=== PATIENT | female | born 1980 | race Two or more races ===

== ENCOUNTER 2022-11-09 10:22 | Outpatient (REF) | payer MEDICAID, SELFPAY ==
--- NOTE | ~2022-11-09 | MM_ITS ---
EXAMINATION: MM DIAGNOSTIC DIGITAL WITH TOMOSYNTHESIS, BILATERAL US BREAST, TARGETED, RIGHT CLINICAL INFORMATION: Right breast lump 3 o'clock position. The lifetime risk of breast cancer based on the Tyrer-Cuzick Model is 17%. COMPARISON: Mammography: None. TECHNIQUE: Digital breast tomosynthesis is performed in both the craniocaudal and mediolateral oblique views along with computer-aided detection (CAD). Synthesized 2D images are generated from the tomosynthesis. Targeted right breast ultrasound. FINDINGS: The breasts are heterogeneously dense, which may obscure small masses (ACR BI-RADS breast composition Category c). MAMMOGRAM: LEFT BREAST: The left breast appears unremarkable without abnormal dominant mass or suspicious grouping of microcalcifications. RIGHT BREAST: Views of the right breast demonstrate in the central aspect of the right breast a circumscribed lobular density approximately 3 cm from the nipple measuring approximately 1.0 x 0.8 cm in size. Spot compression views appear to efface the central density with the appearance of possible superimposition of fibroglandular tissue, however, faint, hazy density is not excluded. No abnormality is identified in the region of palpable lump. ULTRASOUND: Ultrasound of the right breast in region of palpable abnormality approximately 4 o'clock position did not demonstrate any abnormal cystic or solid mass. No region of abnormal distal sound shadowing was identified. Scanning the central aspect of the right breast did not demonstrate any abnormal cystic or solid mass. No region of abnormal distal sound shadowing is seen. At the 8 o'clock position there is noted to be an incidental 2 mm simple cyst. Results are discussed with the patient at time of visit. MM/MM tomosynthesis diagnostic BI IMPRESSION: No mammographic or ultrasound abnormality is identified in the region of palpable abnormality. The questioned central density 3 cm from the nipple is not definitely identified on ultrasound and six-month follow-up right breast mammogram is suggested for follow-up. ASSESSMENT: BI-RADS 3: Probably Benign RECOMMENDATION: Diagnostic mammography in 6 months. This patient's information was entered into a reminder system with a target due date for their next mammogram.
== END 2022-11-09 10:23 | disposition home or self-care (01) ==
LOC: HO.MAMMO 10:22
PROVIDERS: PCP Student in an Organized Health Care Education/Training Program; Visit Provider Advanced Practice Midwife
DX: N63.41 Unspecified lump in right breast, subareolar (principal)
CPT/HCPCS: 76642; 77062; 77066

== ENCOUNTER 2023-05-29 14:36 | Outpatient (REF) | payer MEDICAID, SELFPAY ==
--- NOTE | ~2023-05-29 | MM_ITS ---
EXAMINATION: MM DIAGNOSTIC DIGITAL BREAST TOMOSYNTHESIS, RIGHT US BREAST LIMITED, RIGHT MAMMOGRAPHY: CLINICAL INFORMATION: Follow-up focal asymmetry central right breast approximately 11:30 o'clock location previously not seen on ultrasound. COMPARISON: Mammography: 11/09/2022. Ultrasound 11/09/2022. TECHNIQUE: Digital right breast tomosynthesis is performed in both the craniocaudal and mediolateral oblique views along with computer-aided detection (CAD). Synthesized 2D images are generated from the tomosynthesis. In addition, a full-field right mediolateral view was performed. FINDINGS: There are scattered areas of fibroglandular density (ACR BI-RADS breast composition Category b). There is a lobular focal asymmetry at the 11:30 o'clock location central right breast approximately 3.5 cm from the nipple, similar to the prior exam without definite change. There is otherwise no suspicious mass, suspicious grouped calcifications, or area of architectural distortion. Results are provided to the patient at time of visit by the technologist. ULTRASOUND: CLINICAL INFORMATION: Evaluate focal asymmetry central right breast approximately 11:30 o'clock location. Second Look ultrasound. COMPARISON: 11/09/2022 TECHNIQUE: Targeted sonographic evaluation was performed using a high frequency linear transducer. Attention was given to the 11-12 o'clock axis right breast. Selected archived documentation. FINDINGS: RIGHT BREAST: In the 11:00 axis approximately 2 cm from the nipple, there is a 2.9 x 0.4 x 0.7 cm lobular hypoechoic mass with good through transmission, no internal blood flow, and not definitively a cyst. This is most likely a fibroadenoma or variant. It is probably benign. Recommend six-month interval targeted right breast ultrasound as well as right mammography in 6 months when the patient is due for bilateral screening. MM/MM tomosynthesis diagnostic RT IMPRESSION: There are no findings suspicious for malignancy in the right breast. Probably benign fibroadenoma or variant in the 11:00 axis of the right breast measuring up to 9 mm. Recommend six-month interval follow-up mammography and targeted sonography to ensure stability. OVERALL ASSESSMENT: Mammography: BI-RADS 3 - Probably benign finding(s) - 6 month follow-up suggested Ultrasound: BI-RADS 3 - Probably benign finding(s) - 6 month follow-up suggested RECOMMENDATION: 6 Month F/U This patient's information was entered into a reminder system with a target due date for their next mammogram.
== END 2023-05-29 14:37 | disposition home or self-care (01) ==
LOC: HO.MAMMO 14:36
PROVIDERS: PCP Student in an Organized Health Care Education/Training Program; Visit Provider Student in an Organized Health Care Education/Training Program
DX: R92.2 Inconclusive mammogram (principal)
CPT/HCPCS: 76642; 77061; 77065

== ENCOUNTER → 2023-05-29 15:00 | Outpatient (BNV) | payer MEDICAID, SELFPAY | PROVIDERS: PCP Student in an Organized Health Care Education/Training Program; Visit Provider Radiology Diagnostic Radiology | DX: D24.1 Benign neoplasm of right breast (principal) | CPT/HCPCS: 76642; 77061; 77065 ==

== ENCOUNTER 2023-11-29 10:41 | Outpatient (REF) | payer MEDICAID, SELFPAY ==
--- NOTE | ~2023-11-29 | MM_ITS ---
EXAMINATION: MM DIAGNOSTIC DIGITAL BREAST TOMOSYNTHESIS, BILATERAL US BREAST LIMITED, RIGHT MAMMOGRAPHY: CLINICAL INFORMATION: Six-month follow-up diagnostic right breast mammogram for central retroareolar lobular focal asymmetry, which does not definitively persist on spot compression views previously. Questionable correlation on ultrasound, however likely not wine sales representative of same entity due to depth. Patient also due for bilateral screening today. Breast cancer in mother at age 40's. COMPARISON: Mammography: 05/29/2023, 11/09/2022 (baseline). TECHNIQUE: Digital breast tomosynthesis is performed in both the craniocaudal and mediolateral oblique views along with computer-aided detection (CAD). Synthesized 2D images are generated from the tomosynthesis. A second left MLO was also submitted. This was followed by targeted right breast ultrasound. FINDINGS: The breasts are heterogeneously dense, which may obscure small masses (ACR BI-RADS breast composition Category c). In the central right breast, the retroareolar lobular focal asymmetry is again noted, however does not persist on prior spot compression views, and no correlate on ultrasound was definitively seen previously. We will attempt to image this region on ultrasound today. It appears less conspicuous on mammography. In the upper outer aspect of the right breast, there is an focal asymmetry/possible mass at the 11:00 axis, approximately 7 cm from the nipple, better seen on the CC projection and not as well seen on the MLO projection. This will be evaluated with ultrasound. Otherwise, no additional abnormal masses, developing regions of architectural distortion, additional asymmetries, or suspicious calcifications are present in either breast. The left breast heterogeneously dense parenchymal pattern is stable from prior exams without change. No skin or axillary abnormalities are present. ULTRASOUND: CLINICAL INFORMATION: As above. Evaluate for correlate central right breast, and 6 month follow-up finding at 11:00 axis, 2 cm from the nipple right breast. Also, evaluate focal asymmetry upper outer quadrant right breast. COMPARISON: 05/29/2023, 11/09/2022 right breast ultrasounds. TECHNIQUE: Targeted sonographic evaluation was performed using a high frequency linear transducer. Attention was given to the above regions. Selected archived documentation. FINDINGS: RIGHT BREAST: -Both myself and the solutions architect scanned. There is heterogeneously dense fibrocystic parenchyma. -There is no ultrasound correlate to the central focal asymmetry in the retroareolar region right breast. This is likely a benign tissue island and is stable from the prior exams. -The previously questioned fibroadenoma/mass at 11:00, 2 cm from the nipple, is again seen today sonographically, however appears to represent a benign fat lobule as opposed to an actual mass. Both myself and the technologist scanned, and I believe the finding to represent a normal fat lobule. No definite mass at 11:00, 2 cm from the nipple. -In the upper outer quadrant of the right breast, 11:00 axis, 7 cm from the nipple, there is an irregular hypoechoic mass with lobulated irregular margins, surrounding hyperechoic fat, no posterior features, no internal color Doppler blood flow, however mild peripheral increased color Doppler flow was noted. This mass is indeterminant and measures 7 x 5 x 5 mm. Ultrasound-guided biopsy is recommended. MM/MM tomosynthesis diagnostic BI IMPRESSION: -Indeterminant mass measuring 7 x 5 x 5 mm upper outer quadrant right breast 11:00 axis, 7 cm from the nipple, for which ultrasound-guided biopsy is recommended. This correlates with the focal asymmetry seen on mammography. Findings and recommendations were communicated to the patient via an summer camp counselor. -No definite persistent ultrasonographic mass 11:00 right breast, 2 cm from the nipple. The previous finding appears to represent a benign fat lobule. No further follow-up of this finding recommended. -No definite correlative abnormality in the central right breast retroareolar region on ultrasound, similar to previous, and less conspicuous on mammography. This is likely a benign island of dense tissue. No further follow-up recommended. OVERALL ASSESSMENT: Mammography: BI-RADS 4 - Suspicious finding Ultrasound: BI-RADS 4 - Suspicious finding RECOMMENDATION: Biopsy recommended
== END 2023-11-29 10:42 | disposition home or self-care (01) ==
LOC: HO.MAMMO 10:41
PROVIDERS: PCP Student in an Organized Health Care Education/Training Program; Visit Provider Student in an Organized Health Care Education/Training Program
DX: R92.2 Inconclusive mammogram (principal)
CPT/HCPCS: 76642; 77062; 77066

== ENCOUNTER → 2023-11-29 11:00 | Outpatient (BNV) | payer MEDICAID, SELFPAY | PROVIDERS: PCP Student in an Organized Health Care Education/Training Program; Visit Provider Radiology Diagnostic Radiology | DX: R92.8 Other abnormal and inconclusive findings on diagnostic imaging of breast (principal) | CPT/HCPCS: 76642; 77062; 77066 ==

== ENCOUNTER 2023-12-05 07:48 | Outpatient (AMB) | payer MEDICAID, SELFPAY ==
--- NOTE | 2023-12-05 08:02 | MHC.OFFVIS ---
Vital Signs 12/05/23 08:06 Height 5 ft 2 in Weight 137 lb BMI 25.1 Intake Visit Reasons: Rt breast us bx Intake Note: This patient presents for an assessment for right breast ultrasound guided biopsy for nodule. Pt c/o; reports no breast pain or tenderness, reports no change in size or shape, reports no discharge from nipple. Physician Relations Manager Required: No Accompanied by: Self / Same As Patient Allergies No Known Allergies Allergy (Unverified 12/05/23 08:11) Medication List - Last Reconciled 12/05/23 by Butch Cook MD sertraline 25 mg PO QAM HPI HPI Rt breast us bx: Details: [age] year-old female referred for a right breast mass. She had a diagnostic mammogram last 11/29/2023 for history of a right breast focal asymmetry on a previous mammogram. This follow-up mammogram showed a lobular focal asymmetry on the Stephen areolar aspect of the right breast in the upper outer quadrant at the 11 o'clock position measuring about 7 x 5 x 5 mm. An ultrasound-guided biopsy was recommended She denies any palpable breast masses. Her menarche was at age of 13. Her 1st was at age of 23. She had pregnancies. She says that her mother was diagnosed to have breast cancer in her 50s. [facility] Medical History (Updated 12/05/23 @ 08:45 by Butch Cook MD) Hypertension Breast mass, right Surgical History History of tubal ligation Family History Mother Breast cancer Social History Alcohol intake: current Alcohol intake frequency: holidays/special occasions only Patient Tobacco Use Status: Never used Tobacco Female Reproductive History Menstrual Age of Menarche: 13 Date of last menstrual period: 11/09/23 Total pregnancies: 3 Full term: 2 Number of Living Children: 2 Review of Systems Const Denies chills and Denies fever(s) Card Denies chest pain, Denies dyspnea and Denies dyspnea on exertion Resp Denies cough, Denies dyspnea and Denies dyspnea on exertion GI Denies hematochezia and Denies change in bowel habits Denies hematuria Musc Denies back pain and Denies limited range of motion Neuro Denies focal weakness and Denies convulsions Psych Denies depression and Denies mood swings Physical Exam Vital Signs: BMI result Body Mass Index 25.1 Const General: comfortable and no acute distress Orientation/consciousness: patient oriented x3 Neck Neck: Yes no lymphadenopathy Chest Other: No palpable breast masses, no nipple or skin changes, palpable mobile lymph node about 1 cm in the right axilla, well-defined Resp Auscultation: clear to auscultation bilaterally Cardio Rhythm: regular rhythm GI Palpation (GI): Soft to palpation, nontender and no guarding Neuro General: patient oriented x3 Assessment & Plan Assessment & Plan (1) Breast mass, right: Code(s): N63.10 - Unspecified lump in the right breast, unspecified quadrant Category: Medical Plan: She has a right breast mass seen on imaging studies as described above. An ultrasound-guided biopsy had been recommended therefore I explained to her the technique of this procedure. I will see her next week after her biopsy to discuss the path report. I also feel a lymph node in the right axilla which is very mobile. I have asked the radiologist to see if this can be biopsied as well in the same setting. Orders: Orders US breast ndl core biopsy RT 12/04/23 N63.10 - Unspecified lump in the right breast, unspecified quadrant Coding Level of Care Code New Pt Level 3 (32389) Diagnoses Breast mass, right N63.10
[2023-12-05 08:06] VITALS: BMI 25.1
== END 2023-12-05 08:46 | disposition home or self-care (01) ==
PROVIDERS: PCP Student in an Organized Health Care Education/Training Program; Referring Provider Student in an Organized Health Care Education/Training Program; Visit Provider Surgery
DX: N63.10 Unspecified lump in the right breast, unspecified quadrant (principal)
CPT/HCPCS: 99203

== ENCOUNTER → 2023-12-05 07:48 | Outpatient (BNVA) | payer MEDICAID, SELFPAY | PROVIDERS: PCP Student in an Organized Health Care Education/Training Program; Visit Provider Surgery | DX: N63.11 Unspecified lump in the right breast, upper outer quadrant (principal) | CPT/HCPCS: 99202 ==

== ENCOUNTER 2023-12-10 07:42 | Outpatient (REF) | payer MEDICAID, SELFPAY ==
--- NOTE | ~2023-12-10 | MM_ITS ---
PROCEDURE: US GUIDED BREAST BIOPSY, RIGHT CLINICAL INFORMATION: Right breast 11:00 axis, 7 cm from the nipple, irregular hypoechoic mass measuring approximately 7 x 5 x 5 mm with lobulated margins, slightly increased in conspicuity and size from prior and biopsy was recommended. COMPARISON: Ultrasound right breast 11/29/2023 with mammography. Ultrasound right breast 05/29/2023 with mammography. PROCEDURAL DETAILS: The details of the procedure, as well as the risks, benefits, and alternatives to the procedure were explained to the patient in detail and all of her questions were answered, after which written informed consent was obtained. Site and side were confirmed. Prior to the procedure, sonography revealed a hypoechoic vascular mass at the 11:00 axis, 7 cm from the nipple, measuring 7 x 5 x 5 mm with lobulated margins.. A time-out was performed, the lesion intended for biopsy was targeted, and the skin of the right breast was then marked, prepped and draped in the usual sterile fashion. Using sonographic guidance, sterile technique, and 1% lidocaine without epinephrine for local anesthesia, multiple core biopsies were obtained through the targeted area with a 14G spring loaded [employer] core biopsy device. There was real-time confirmation of appropriate needle passage. Sampling was documented. At the completion of tissue sampling, a single ribbon-shaped metallic clip was deposited at the biopsy site. There was no evidence of immediate complication. SPECIMEN: 3 well formed core samples were obtained DIGITAL POST-PROCEDURE MAMMOGRAPHY: Breast density: The tissue is heterogeneously dense which may obscure small masses. BI-RADS version 5, category C. There are no new mammographic findings demonstrated. The postprocedure 2-view direct digital mammogram reveals satisfactory and accurate positioning of the biopsy clip. No hematoma present. The patient tolerated the procedure well and, after assuring adequate hemostasis, was discharged in good condition after reviewing postbiopsy breast care instructions. Final pathology results are pending. OTHER ULTRASONOGRAPHIC FINDINGS: Ultrasound scanning of the right axilla was also performed at the same time per the request of Dr. Cook, who palpated a mass or lymph node in the low right axilla. Normal-appearing lymph nodes with borderline thick cortex at 3.5 mm seen, normal fatty lashae, and no significant alteration of patrica architecture. Normal vascular lashae. There was a sebaceous cyst present in the low right axilla, likely accounting for the palpable finding. MM/MM tomosynthesis diagnostic RT IMPRESSION: 1. No immediate complication from ultrasound-guided percutaneous biopsy right breast mass at 11:00. 2. Ultrasound was used to localize and guide marker clip placement. 3. The 2-view direct digital postprocedure mammogram reveals satisfactory positioning of the biopsy clip. 4. Final pathology results are pending. A separate report with final recommendations will be issued once these results are made available. 5. Palpable abnormality in the right axilla represents a sebaceous cyst. No definite abnormal or suspicious right axillary nodes are identified.
[2023-12-10] MEDS: Sodium Bicarbonate 8.4% 50 MEQ/50 ML VIAL SUBCUT (09:23)
[2023-12-10] MEDS: Lidocaine HCl 1 % 20 ML VIAL SUBCUT (09:25)
== END 2023-12-10 07:43 | disposition home or self-care (01) ==
LOC: HO.MAMMO 07:42
PROVIDERS: PCP Student in an Organized Health Care Education/Training Program; Visit Provider Surgery
DX: N63.11 Unspecified lump in the right breast, upper outer quadrant (principal)
CPT/HCPCS: 19083; 77061; 77065; 88305; A4648; C1894

== ENCOUNTER → 2023-12-10 08:00 | Outpatient (BNV) | payer MEDICAID, SELFPAY | PROVIDERS: PCP Student in an Organized Health Care Education/Training Program; Visit Provider Radiology Diagnostic Radiology | DX: N63.10 Unspecified lump in the right breast, unspecified quadrant (principal) | CPT/HCPCS: 19083; 77065 ==

== ENCOUNTER 2023-12-16 08:49 | Outpatient (AMB) | payer MEDICAID, SELFPAY ==
--- NOTE | 2023-12-16 08:52 | A.OFFVIS_ITS ---
Intake Visit Reasons: follow up Rt breast us bx Intake Note: This patient presents for a follow up for right breast biopsy results. Patient c/o; reports no complaints. Mercury Washer Required: No Accompanied by: Self / Same As Patient Allergies No Known Allergies Allergy (Unverified 12/16/23 08:55) Medication List - Last Reconciled 12/16/23 by Butch Cook MD sertraline 25 mg PO QAM HPI HPI follow up Rt breast us bx: Details: She had undergone ultrasound-guided right breast biopsy right breast mass last 12/13/2023. She tolerated procedure well. She denies any post procedure complaints. She is here to discuss the path report. [facility] Medical History Hypertension Breast mass, right Surgical History History of tubal ligation Family History Mother Breast cancer Social History Alcohol intake: current Alcohol intake frequency: holidays/special occasions only Patient Tobacco Use Status: Never used Tobacco Female Reproductive History Menstrual Age of Menarche: 13 Review of Systems Const Denies chills and Denies fever(s) Card Denies chest pain, Denies dyspnea and Denies dyspnea on exertion Resp Denies cough, Denies dyspnea and Denies dyspnea on exertion GI Denies hematochezia and Denies change in bowel habits Denies hematuria Musc Denies back pain and Denies limited range of motion Neuro Denies focal weakness and Denies convulsions Psych Denies depression and Denies mood swings Physical Exam Const General: comfortable and no acute distress Chest Other: No hematoma on biopsy site Resp Effort & Inspection: normal respiratory effort Cardio Rate: regular rate Assessment & Plan Assessment & Plan (1) Breast mass, right: Code(s): N63.10 - Unspecified lump in the right breast, unspecified quadrant Category: Medical Plan: Status post ultrasound biopsy of a right breast mass. She is doing well. Her path report shows benign findings with fibroadenomatous changes. The previous lump on the right axilla was deemed to be a cyst on ultrasound and this is no longer palpable. I explained to her the benign nature of the pathology. She is to continue with regular screening mammograms. She can follow up on a p.r.n. basis. Coding Level of Care Code Est Pt Level 2 (77604) Diagnoses Breast mass, right N63.10
== END 2023-12-16 08:58 | disposition home or self-care (01) ==
PROVIDERS: PCP Student in an Organized Health Care Education/Training Program; Referring Provider Student in an Organized Health Care Education/Training Program; Visit Provider Surgery
DX: N63.10 Unspecified lump in the right breast, unspecified quadrant (principal)
CPT/HCPCS: 99212

== ENCOUNTER → 2023-12-16 08:49 | Outpatient (BNVA) | payer MEDICAID, SELFPAY | PROVIDERS: PCP Student in an Organized Health Care Education/Training Program; Visit Provider Surgery | DX: N63.10 Unspecified lump in the right breast, unspecified quadrant (principal) | CPT/HCPCS: 99212 ==

== ENCOUNTER 2024-04-08 09:32 | Outpatient (REF) | payer MEDICAID, SELFPAY ==
[2024-04-09 08:41] LABS: HIV AB/AG Nonreactive (Nonreactive); HIV Num 1 0.04 S/CO (0.00-0.99); ~HepC Num1 0.14 S/CO (0.00-0.79); ~Hepatitis C Antibody Nonreactive (Nonreactive)
== END 2024-04-08 09:33 | disposition home or self-care (01) ==
LOC: HO.CHCLDS 09:32
PROVIDERS: Visit Provider Student in an Organized Health Care Education/Training Program
DX: Z00.00 Encounter for general adult medical examination without abnormal findings (principal); Z11.4 Encounter for screening for human immunodeficiency virus [HIV]
CPT/HCPCS: 36415; 86803; 87389

== ENCOUNTER 2024-04-14 | Outpatient (REF) | payer MEDICAID, SELFPAY | END 2024-04-14 00:01 | disposition home or self-care (01) | LOC: HO.HHCLNP | PROVIDERS: Visit Provider Family Medicine | DX: Z00.00 Encounter for general adult medical examination without abnormal findings (principal); L02.412 Cutaneous abscess of left axilla | CPT/HCPCS: 87070; 87077; 87186; 87205 ==

== ENCOUNTER 2024-07-13 07:43 | Outpatient (REF) | payer MEDICAID, SELFPAY ==
--- NOTE | ~2024-07-13 | MM_ITS ---
EXAMINATION: MM DIAGNOSTIC DIGITAL BREAST TOMOSYNTHESIS, RIGHT Limited right breast ultrasound. CLINICAL INFORMATION: History of benign right needle core biopsy December 2023 with follow-up recommended. History of right breast focal asymmetry without sonographic correlate followed on mammogram. COMPARISON: Mammography: Comparison is made with available prior examinations dating back to May 2023. TECHNIQUE: Digital breast tomosynthesis is performed in both the craniocaudal and mediolateral oblique views along with computer-aided detection (CAD). Synthesized 2D images are generated from the tomosynthesis. Limited right breast ultrasound. FINDINGS: The breasts are heterogeneously dense, which may obscure small masses (ACR BI-RADS breast composition Category c). Focal asymmetry in the retroareolar region middle to posterior depth persists on additional imaging projections. Marker clip in the upper outer breast from previous benign needle core biopsy. No suspicious calcifications or other abnormal findings. Targeted color Doppler ultrasound scanning in the upper outer quadrant demonstrates normal fibroglandular breast tissue. Again seen is the previously biopsied hypoechoic solid mass with benign pathology at 11:00 7 cm from the nipple measuring 7 x 4 x 6 mm not significantly changed from prior. MM/MM tomosynthesis diagnostic RT IMPRESSION: Right: 1. Previously biopsied benign mass at 11:00. Benign. 2. Focal asymmetry in the retroareolar region middle to posterior depth stable dating back to May 2023. Recommend diagnostic follow up when the patient is due for bilateral mammography in 6 months. ASSESSMENT: BI-RADS BI-RADS 3 - Probably benign finding(s) - 6 month follow-up suggested RECOMMENDATION: 6 Month F/U Results were provided to the patient at time of visit by the technologist. This patient's information was entered into a reminder system with a target due date for their next mammogram. Electronically signed by: Maisha Canales DO 07/13/2024 09:50 AM EST
== END 2024-07-13 07:44 | disposition home or self-care (01) ==
LOC: HO.MAMMO 07:43
PROVIDERS: PCP Student in an Organized Health Care Education/Training Program; Visit Provider Surgery
DX: N63.11 Unspecified lump in the right breast, upper outer quadrant (principal); N64.89 Other specified disorders of breast; R92.331 Mammographic heterogeneous density, right breast; Z86.018 Personal history of other benign neoplasm
CPT/HCPCS: 76642; 77061; 77065

== ENCOUNTER → 2024-07-13 08:45 | Outpatient (BNV) | payer MEDICAID, SELFPAY | PROVIDERS: PCP Student in an Organized Health Care Education/Training Program; Visit Provider Internal Medicine | DX: D24.1 Benign neoplasm of right breast (principal); Z97.8 Presence of other specified devices | CPT/HCPCS: 76642; 77061; 77065 ==

== ENCOUNTER → 2024-12-16 12:30 | Outpatient (BNV) | payer MEDICAID, SELFPAY | PROVIDERS: PCP Student in an Organized Health Care Education/Training Program; Visit Provider Internal Medicine | DX: D24.1 Benign neoplasm of right breast (principal) | CPT/HCPCS: 77062; 77066 ==

== ENCOUNTER 2024-12-16 12:46 | Outpatient (REF) | payer MEDICAID, SELFPAY ==
--- NOTE | ~2024-12-16 | MM_ITS ---
EXAMINATION: MM DIAGNOSTIC DIGITAL BREAST TOMOSYNTHESIS, BILATERAL CLINICAL INFORMATION: Two-year follow-up for focal asymmetry in the retroareolar region of the right breast without prior sonographic correlate. Family history of breast cancer including patient's mother. Benign right breast needle core biopsy upper outer quadrant. COMPARISON: Mammography: Comparison is made with relevant prior exams. TECHNIQUE: Digital breast mammography with tomosynthesis is performed in both the craniocaudal and mediolateral oblique views along with computer-aided detection (CAD). FINDINGS: The breasts are heterogeneously dense, which may obscure small masses (ACR BI-RADS breast composition Category c). Bilateral circumscribed oval masses which wax and consistent with benign fibrocystic changes. Left: There are no significant masses, abnormal calcifications, or other abnormalities. Right: Marker clip in the upper outer breast from previous benign needle core biopsy. Focal asymmetry in the retroareolar region is not significantly changed from prior mammograms dating back for 2 years and therefore benign. No prior sonographic correlate was seen. No suspicious calcifications or other abnormal findings. Results are provided to the patient at time of visit by the technologist. MM/MM tomosynthesis diagnostic BI IMPRESSION: No mammographic evidence of malignancy. ASSESSMENT: BI-RADS BI-RADS 2 - Benign Findings RECOMMENDATION: 1 year F/U This patient's information was entered into a reminder system with a target due date for their next mammogram. Electronically signed by: Maisha Canales DO 12/16/2024 01:16 PM EDT
--- OUTSIDE RECORDS SUMMARY | 2024-12-16 14:13 | XMS_ITS | Encounter Summary ---
Author Organization [employer] Address [address] [place] [address] Care Team Providers Care Stereotype Finisher Name Role Phone Amy Mclain MD Primary Care Provider [phone] Reason for Visit * Reason Onset Date Comments Nurse Triage 02/07/2023 Encounter Details Date Type Department Care Team ([facility] st Contact Info) Description 02/07/2023 Telephone [facility] [address] [place] [address] Amy Mclain MD [address] [place] [address] Nurse Triage Social History Tobacco Use Types Packs/Day Years Used Date Smoking Tobacco: Never Passive Smoke Exposure: Never Smokeless Tobacco: Never Alcohol Use Standard Drinks/Week Comments Never 0 (1 standard drink = 0.6 oz pur e alcohol) Comments No Sex and Gender Information Value Date Recorded Sex Assigned at Female 05/07/2022 10:15 AM EDT Legal Sex Female 10:15 AM EDT Gender Identity Female 06/29/2022 9:20 AM EST Sexual Orientation Straight 05/07/2022 10 :15 AM EDT COVID-19 Exposure Response Date Recorded In the last 10 days, have yo u been in contact with someone who was confirmed or suspected to have Coronavirus/COVID-19? No / Unsure 01/15/2023 9:21 AM EDT documented as of this encounter Miscellaneous Notes * Telephone Encounter - Sade Tay LPN - 02/07/2023 3:10 PM EDT Triage call returned to patient who reports increased episodes of anxiety over the last several weeks. Patient reports no SI/HI concerns but did recently last month feel agitated and felt aggressive towards another. No physical contact and episode passed has shakiness and heart racing and feels an odd sensation in her stomach when this occurs. Has one cup of coffee daily no vitamins and takes an u nknown greens supplement but not daily. Patient develops headaches at times as related to stress.Is not currently seeing therapist and is not on medication at present. Patient is interested in both. Patient with no recent weight loss or gain but sleeps poorly and at times overeats. Clinician services explained and patient readily in agreement with them calling her tomorrow. PCP ASK appt provided for 02/14/23 to accommodate patient work schedule. messaged after call and provided patient information to follow with patient tomorrow. Patient available 12 noon to about 1:30pm.Reviewed withpatient home care recommendations and reasons to call back. Pt verbalized understanding and agrees. Protocol Used: Anxiety and Panic Attack (Adult) Protocol-Based Disposition: See in Office or Video Visit within 3 Days Override (Final) Disposition: Refer to Specialist Override Reason: Can't get off work Override Notes: PCP appt booked as first available to patient Video visit not offered Positive Triage Question: * Symptoms interfere with work or school * All higher-acuity triage questions were negative Care Advice Discussed: * Reassurance and Education - Anxiety * Healthy Living Basics * Avoid Triggers of Anxiety * Avoid Caffeine * Stress Reduction * Reasons To Call Back - Anxiety or panic attacks continue - You feel like harming yourself - You become worse * Reasons To Call Back * Telephone Encounter - Jessie Dalal - 02/07/2023 2:12 PM EDT Symptom: Anxiety or Panic Attack Outcome: Schedule an appointment to be seen within 3 days Reason: Caller denied all higher acuity questions The caller accepted this outcome documented in this encounter Plan of Treatment Not on file documented as of this encounter Visit Diagnoses Not on filedocumented in this encounter Care Teams Stereotype Finisher Relationship Specialty Start Date End Date Amy Mclain MD [address] [place] [address] PCP - General Family Medicine 06/20/12 documented as of this encounter
== END 2024-12-16 12:47 | disposition home or self-care (01) ==
LOC: HO.MAMMO 12:46
PROVIDERS: PCP Student in an Organized Health Care Education/Training Program; Visit Provider Student in an Organized Health Care Education/Training Program
DX: N64.89 Other specified disorders of breast (principal)
CPT/HCPCS: 77062; 77066

== ENCOUNTER 2025-04-16 09:02 | Outpatient (REF) | payer MEDICAID, SELFPAY ==
--- OUTSIDE RECORDS SUMMARY | 2025-04-16 09:31 | XMS_ITS | Encounter Summary ---
Author Organization [employer] Address [address] [place] [address] Care Team Providers Care Distillation Operator Name Role Phone Amy Mclain MD Primary Care Provider [phone] Reason for Visit * Reason Onset Date Comments new patient appt 02/19/2025 Encounter Details Date Type Department Care Team ([facility] Contact Info) Description 02/19/2025 Telephone [facility] ADULT DENTAL [address] [place] [address] David Tello, DMD [address] [place] [address] new patient appt Social History Tobacco Use Types Packs/Day Years Used Date Smoking Tobacco: Never Passive Smoke Exposure: Never Smokeless Tobacco: Never Alcohol Use Standard Drinks/Week Comments Never 0 (1 standard drink = 0.6 oz pur e alcohol) Depression Answer Date Recorded Patient Health Questionnaire-9 Score 7 03/19/2024 Patient Health Questionnaire-9 Score 7 03/19/2024 Last PHQ-9: Questionnaire Data Not on file 0 03/19/2024 Housing Stability Answer Date Recorded What is your housing situation today? I have anabela lopez 01/26/[address] you li ve. Do you have problems with any of the following? None of the above 01/26/2025 Food Insecurity Answer Date Recorded Within the past 12 months, y ou worried that your food would run out before you got money to buy more: Never True 01/26/2025 Within the past 12 months,th e food you bought just didn't last and you didn't have enough money to get more: Never True Transportation Answer Date Recorded In the past 12 months, has l ack of transportation kept you from medical appts, meetings, work or from getting things needed for daily living? No 01/26/2025 Utilities Answer Date Recorded In the past 12 months, has t he electric, gas, oil or water company threatened to shut off services in your home? No 01/26/2025 Depression Answer Date Recorded Patient Health Questionnaire-2 Score 4 03/19/2024 Internet Access Answer Date Recorded Internet Access Q1 No 01/26/2025 Internet Access Q2 I do not want or need it 01/06 Comments No Sex and Gender Information Value Date Recorded Sex Assigned at Female 05/07/2022 10:15 AM EDT Legal Sex Female 10:15 AM EDT Gender Identity Female 06/29/2022 9:20 AM EST Sexual Orientation Straight 05/07/2022 10 :15 AM EDT documented as of this encounter Miscellaneous Notes * Telephone Encounter - Maday Humphreys - 02/19/2025 10:48 AM EDT Patient called in checking in on the status of [facility]adia wait list appt. When I checked in the chart there is no appt wait listed as new patient. I asked the patient if she had made the request over the phone or in person. She's stated that she did it in person because she was in an appt and stopped in after and wants to keep her care in the same place. She says she has been waiting since last year. documented in this encounter Plan of Treatment Upcoming Encounters Date Type Department Care Team (Late st Contact Info) Description 05/07/2025 1:30 PM EDT Office Visit [facility] AD[facility] [address] [place] [address] Seferino Junior [address] [place] [address] documented as of this encounter Visit Diagnoses Not on filedocumented in this encounter Additional Health Concerns Assessment Noted Time PHQ-9 Depression Total Score: 7 03/19/20 24 11:31 AM EDT documented as of this encounter Care Teams Distillation Operator Relationship Specialty Start Date End Date Amy Mclain MD [address] [place] [id number] PCP - General Family Medicine 06/20/12 documented as of this encounter
--- OUTSIDE RECORDS SUMMARY | 2025-04-16 09:31 | XMS_ITS | Encounter Summary ---
Author Organization [employer] Address [address] [facility] [address] [place] [address] Care Team Providers Care Veterans Service Officer Name Role Phone Amy Mclain MD Primary Care Provider [phone] Encounter Details Date Type Department Care Team ([facility] st Contact Info) Description 04/13/2025 Telephone [facility] ADULT DENTAL [address] [place] [address] Sandi Seferino [address] [place] [address] Social History Tobacco Use Types Packs/Day Years [...] encounter Miscellaneous Notes * Telephone Encounter - Tatyana Rose - 04/13/2025 11:08 AM EDT Not able to get in touch w/ pt. I tried both the number she has in her chart and the one she has inher hippa. I was trying to see if she would like to move her appt to a sooner date. documented in this encounter Plan of Treatment Upcoming Encounters Date Type Department Care Team (Late st Contact Info) Description 05/07/2025 1:30 PM EDT Office Visit [facility] ADULT DENTAL [address] [place] [address] Seferino Junior [address] [place] [address] documented as of this encounter Visit Diagnoses Not on filedocumented in this encounter Additional Health Concerns Assessment Noted Time PHQ-9 Depression Total Score: 7 03/19/20 24 11:31 AM EDT documented as of this encounter Care Teams Veterans Service Officer Relationship Specialty Start Date End Date Amy Mclain MD [address] [place] [id number] PCP - General Family Medicine 06/20/12 documented as of this encounter
--- OUTSIDE RECORDS SUMMARY | 2025-04-16 09:31 | XMS_ITS | Encounter Summary ---
Author Organization [employer] Address [address] [facility] [address] [place] [address] Care Team Providers Care Equipment Processor Name Role Phone Amy Mclain MD Primary Care Provider [phone] Reason for Visit * Reason Onset Date Comments Nurse Triage 02/07/2023 Encounter Details Date Type Department Care Team ([facility] st Contact Info) Description 02/07/2023 Telephone [facility] [address] [place] [address] Amy Mclain MD [address] [place] [address] Nurse Triage Social History Tobacco Use Types [...] 1:30 PM EDT Office Visit [facility] ADULT DENTAL [address] [place] [phone] Seferino Junior [address] [place] [phone] documented as of this encounter Visit Diagnoses Not on filedocumented in this encounter Care Teams Equipment Processor Relationship Specialty Start Date End Date Amy Mclain MD [address] [place] [id number] PCP - General Family Medicine 06/20/12 documented as of this encounter
--- OUTSIDE RECORDS SUMMARY | 2025-04-16 09:31 | XMS_ITS | Clinical Summary ---
Author Organization [employer] Address [address] [facility] [address] [place] [address] Care Team Providers Care Welt Sewer Name Role Phone Amy Mclain MD Primary Care Provider [phone] Allergies No known active allergies Medications * This document contains information received from the source organization and may not represent a complete record from that organization. Blood Pressure kitIndications:E levated blood pressure reading 1 kit in the morning. 1 kit 2 Active minoxidil (Rogaine) 2 % external solutionIndicati ons:Alopecia areata Apply topically 2 times daily. 60 mL 3 3 Active spironolactone (Aldactone) 100 MG tabletIndication s:Traction alopecia,Acne vulgaris Take 1 tablet (100 mg) by mouth in the morning. 30 tablet 11 3 Active hydrOXYzine HCl (Atarax) 10 MG tabletIndication s:Anxiety Take 2.5 tablets (25 mg) by mouth if needed at bedtime for anxiety. 30 tablet 2 4 Active sertraline (Zoloft) 25 MG tablet Take 1 tablet (25 mg) by mouth Once per day. 30 tablet 11 5 07/30/19 26 Active cloNIDine (Catapres-TTS) 0.1 MG/24HR Place 1 patch on the skin 1 (one) time per week. 4 patch 5 Active pseudoephedrine (Sudafed) 30 MG tablet Take 1 tablet (30 mg) by mouth every 4 (four) hours if needed for congestion for up to 10 days. 30 tablet 5 Active famotidine (Pepcid) 20 MG tabletIndication s:Gastroesophage al reflux disease, unspecified whether esophagitis present Take 1 tablet (20 mg) by mouth if needed in the morning and at bedtime for heartburn for up to 7 days. 14 tablet 5 Active esomeprazole (NexIUM) [address] capsule Take 1 capsule (20 mg) by mouth before breakfast. Do not open capsule. 30 capsule 11 5 01/27/20 26 Active Active Problems Problem Noted Date Diagnosed Date Staphylococcus aureus infection 04/23/2024 Abscess of axilla, left 04/14/2024 Assessment & Plan (04/14/2024 7:51 PM EDT): Visible abscess on exam, showing 3cm by 4cm mobile, firm mass on left axilla. Discussed I&D versus abx treatment prior and surgery referral including risks and benefits of both. Pt opted for I&D in clinic. -I&D performed 04/14/24, see procedure note. -start Doxycycline 100 mg -recommended ibuprofen for pain. -given work note. -scheduled f/u for 04/16/24. Parotiditis 06/29/2022 Assessment & Plan (06/29/2022 10:01 AM EST): Patient with parotiditis in the hospital, will send to ENT. Recommended followup with PCP. Elevated blood pressure reading 06/29/2022 Assessment & Plan (06/29/2022 10:01 AM EST): Elevated BP, recommend monitoring and will followup with PCP Anxiety 06/28/2022 Assessment & Plan (02/08/2023 1:38 PM EDT): Assessment: Patient with anxiety lasting up to 3 days at a time (difficult to control nervousness/worry, racing thoughts,) and panic attacks (shaking, increased heart rate, stomach sensations). Symptoms are in the context of biopsychosocial stressors of relationship difficulties and a history trauma. Patient will benefit from continuing OP therapy with [facility], discussing medication management options with PCP, and exploring coping mechanisms of grounding and guided deep breathing. . At this time Ambar Botello meets criteria for Visit Diagnoses: Problem List Items Addressed This Visit Other Anxiety Patient ready to address current needs Yes Strengths- Ambar is in OP therapy at [facility] and in the action stage of change PLAN: 1. Follow up with [facility]: Recommended for follow-up: As needed 2. Patient goal is to explore coping mechanisms to decrease anxiety symptoms 3. Behavioral Recommendations a. Guided deep breathing b. Guided grounding c. Continue OP therapy Depressive disorder 06/28/2022 GERD (gastroesophageal reflux disease) 2 Encounters Date Type Department Care Team Description 04/13/2025 Telephone [facility] [address] [place] [address] Sand[facility] 04/08/2025 Telephone [facility] [address] [place] [address] Sand[facility] 03/30/2025 8:00 AM EDT Office Visit [facility] [address] [place] [address] Sandi Seferino 03/16/2025 Orders Only [facility] [address] [place] [address] Amy Mclain MD Hypertension, unspecified type (Primary Dx) 03/15/2025 Telephone [facility] [address] [place] [address] Amy Mclain MD Lab Orders 02/22/2025 9:00 AM EDT Office Visit [facility] [address] [place] [phone] Tim Medrano Dental calculus (Primary Dx) 02/19/2025 Telephone [facility] [address] [place] [phone] David Tello, BARRY new patient appt 01/26/2025 8:45 AM EDT Office Visit [facility] [address] [place] [address] Amy Mclain MD Gastroesophageal reflux disease without esophagitis (Primary Dx); Depressive disorder; Lactose intolerance 01/26/2025 Travel 01/25/2025 Telephone [facility] [address] [place] [address] Amy Mclain MD Chart Prep from Last 3 Months Immunizations Immunization Administration Dates Next Due DTP 1981,1981,1981 DTaP 09/05/1985,03/08/1984 Hep B, adult 05/03/1997,08/08/1995,12/06/1994 Influenza injectable quadriv alent preservative free 04/20/2015 Influenza, IIV3, injectable 07/29/2014 Influenza, Split (incl. terrance fied surface antigen) 03/13/2013 MMR 07/08/1994,10/07/1983 OPV, Trivalent 09/05/1985, 4,1981,1980 TD (adult), 2 Lf tetanus tox oid, preservative free, adsorbed 07/08/1995 Tdap 04/08/2024,07/16/2012,09/29/2010 Family History Medical History Relation Name Comments Breast cancer Mother age 52 in 2022 , in remission Relation Name Status Comments Mother Alive Social History Tobacco Use Types Packs/Day Years Used Date Smoking Tobacco: Never Passive Smoke Exposure: Never Smokeless Tobacco: Never Tobacco Cessation:Counseling Given: Not Answered Alcohol Use Standard Drinks/Week Comments Never 0 [...] the past 12 months, has t he [employer], gas, oil or water [employer] threatened to shut off services in your [...] Orientation Straight 05/07/2022 10 :15 AM EDT Last Filed Vital Signs Vital Sign Reading Time Taken Comments Blood Pressure 120/87 03/30/2025 8:14 AM EDT Pulse 65 02/22/2025 9:04 AM EDT Temperature 36.4 C (97.5 F) 01/26/2025 8:57 AM EDT Respiratory Rate 18 01/26/2025 8:57 AM EDT Oxygen Saturation 100% 07/07/2024 10:19 AM EST Inhaled Oxygen Concentration - - Weight 60.8 kg (134 lb) 01/26/2025 8:57 AM EDT Height 157.5 cm (5' 2 ) 01/26/2025 8:57 AM EDT Body Mass Index 24.51 01/26/2025 8:57 AM EDT Plan of Treatment Upcoming Encounters Date Type Department Care Team (Late st Contact Info) Description 05/07/2025 1:30 PM EDT Office Visit [facility] [address] [place] [address] Seferino Junior [address] [place] [address] Health Maintenance Due Date Last Done Comments Alcohol/Substance Use Screening 1993 Family Planning (PISQ) 1996 HPV Vaccines (1 - 3-dose series) 1996 Dental Oral Exam 01/17/2009 07/19/2008 COVID-19 Vaccine ( season) 2025 Influenza Vaccine (#1) 2025 5, 07/29/2014, 03/13/2013 Depression Screening 03/19/2025 03/19/2024, 03/19/20 24 Dental Prophylaxis 08/26/2025 02/22/2025 Mammogram 12/16/2025 12/16/2024, 12/2024, 07/13/2024, Additional history exists Disability Screening 01/26/2026 01/26/2025 SDOH Screening 01/26/2026 01/26/2025 Dental X-Ray: Bitewings 02/23/2026 02/22/2025 Tobacco Screening 03/30/2026 03/30/2025 Lipid Panel 09/27/2027 09/26/2022 Cervical Cancer Screening 10/17/2027 HPV/Cotest 10/17/2027 10/16/2022 Pap Smear 10/17/2027 10/16/2022 Dental X-Ray: Full Mouth 02/24/2028 02/22/2025 Zoster Vaccines (1 of 2) 2031 DTaP/Tdap/Td Vaccines (9 - Td or Tdap) 04/08/2034 04/08/2024, 07/16/2012, 09/29/2010, Additional history exists RSV Patients and Patients Aged 60 years or older (1 - 1-dose 75+ series) 2056 IPV Vaccines Completed 09/05/1985, 07/1983, 1981, Additional history exists Hepatitis B Vaccines Completed 05/03/1997, 08/08/1995, 12/06/1994 HIV Screening Completed 04/08/2024 Hepatitis C Screening Completed 04/08/2024 HIB Vaccines Aged Out No longer eligi ble based on patient's age to complete this topic Hepatitis A Vaccines Aged Out No long er eligible based on patient's age to complete this topic Meningococcal B Vaccine Aged Out No l onger eligible based on patient's age to complete this topic Meningococcal Vaccine Aged Out No everette catrachito eligible based on patient's age to complete this topic Pneumococcal Vaccine: Pediatrics (0 to 5 Years) and At-Risk Patients (6 to 49) Years Aged Out No longer eligible based on patient's age to complete this topic RSV under 20 months Aged Out No longe r eligible based on patient's age to complete this topic Rotavirus Vaccines Aged Out No longer eligible based on patient's age to complete this topic Procedures Procedure Name Priority Date/Time Associated Diagnosis Comments CASE PRESENTATION, DETAILED AND EXTENSIVE TREATMENT PLANNING Routine 03/30/2025 8:00 AM EDT 19 MOD RESIN-BASED COMPOSITE - 3 SURF, POSTERIOR Routine 03/30/2025 8:00 AM EDT CASE PRESENTATION, DETAILED AND EXTENSIVE TREATMENT PLANNING Routine 02/22/2025 9:00 AM EDT ORAL HYGIENE INSTRUCTIONS Routine 02/22/2025 9:00 AM EDT PROPHYLAXIS - ADULT Routine 02/22/2025 9 :00 AM EDT INTRAORAL - COMPLETE SERIES OF RADIOGRAPHIC IMAGES Routine 02/22/2025 9:00 AM EDT COMPREHENSIVE PERIODONTAL EVALUATION - NEW OR ESTABLISHED PATIENT Routine 02/22/2025 9:00 AM EDT 6 DL COMPOSITE FILLING Routine 12:00 AM EDT 21 O AMALGAM FILLING Routine 02/22/2025 12:00 AM EDT 20 DO AMALGAM FILLING Routine 02/22/2025 12:00 AM EDT 14 MOD COMPOSITE FILLING Routine 02/22/2025 12:00 AM EDT 13 MOD AMALGAM FILLING Routine 12:00 AM EDT 12 DO AMALGAM FILLING Routine 02/22/2025 12:00 AM EDT 30 MO AMALGAM FILLING Routine 02/22/2025 12:00 AM EDT BI MAMMOGRAM DIAGNOSTIC TOMOSYNTHESIS BILATERAL Routine 12/16/2024 12:58 PM EDT HEPATITIS C AB W/REFL TO HCV RNA, QN, PCR Routine 04/08/2024 9:34 AM EDT PE (physical exam), annual HIV 1/2 ANTIGEN/ANTIBODY, FOURTH GENERATION W/RFL Routine 04/08/2024 9:34 AM EDT PE (physical exam), annual IMAGE-GUIDED PAP W/AGE BASED SCR PROTOCOLS Routine 10/16/2022 9:29 AM EDT Cervical cancer screening LIPID PANEL, STANDARD Routine 09/26/2022 8:40 AM EDT Alopecia areata COMPREHENSIVE ORAL EVALUATION - NEW OR ESTABLISHED PATIENT Routine 07/19/2008 12:00 AM EST from Last 3 Months or Most Recently Relevant to Health Maintenance Results * BI Mammogram Diagnostic Tomosynthesis Bilateral (12/16/2024 12:58 PM EDT) Anatomical Region Laterality Modality Breast Bilateral Mammography 12/16/2024 12:5 8 PM EDT Narrative 12/16/2024 1:18 PM EDT [facility] [address] [place] [place], [place] [address] Mammography Report Signed Patient: Ambar Botello MR#: [id number] : 1980 Acct:[id number] Age/Sex: 44 / F ADM Date: 12/16/24 Loc: HO.MAMMO Attending Dr: Amy Mclain MD Ordering Physician: Amy Mclain MD Results: 2Benign Findings Date of Service: 12/16/24 Follow Up: 1 Year From [facility] Mammogram Procedure(s): MM tomosynthesis diagnostic BI Accession Number(s): [id number] cc: Amy Mclain MD EXAMINATION: MM DIAGNOSTIC DIGITAL BREAST TOMOSYNTHESIS, BILATERAL CLINICAL INFORMATION: Two-year follow-up for focal asymmetry in the retroareolar region of the right breast without prior sonographic correlate. Family history of breast cancer including patient's mother. Benign right breast needle core biopsy upper outer quadrant. COMPARISON: Mammography: Comparison is made with relevant prior exams. TECHNIQUE: Digital breast mammography with tomosynthesis is performed in both the craniocaudal and mediolateral oblique views along with computer-aided detection (CAD). FINDINGS: The breasts are heterogeneously dense, which may obscure small masses (ACR BI-RADS breast composition Category c). Bilateral circumscribed oval masses which wax and consistent with benign fibrocystic changes. Left: There are no significant masses, abnormal calcifications, or other abnormalities. Right: Marker clip in the upper outer breast from previous benign needle core biopsy. Focal asymmetry in the retroareolar region is not significantly changed from prior mammograms dating back for 2 years and therefore benign. No prior sonographic correlate was seen. No suspicious calcifications or other abnormal findings. Results are provided to the patient at time of visit by the technologist. MM/MM tomosynthesis diagnostic BI IMPRESSION: No mammographic evidence of malignancy. ASSESSMENT: BI-RADS BI-RADS 2 - Benign Findings RECOMMENDATION: 1 year F/U This patient's information was entered into a reminder system with a target due date for their next mammogram. Electronically signed by: Maisha Canales DO 12/16/2024 01:16 PM EDT Dictated By: Maisha Canales DO Signed By: <Electronically signed by Maisha Canales DO in OV> 12/16/24 1316 DD/ 1258 TD/TT: 12/16/24 1313 Seed Collector: Procedure Note Donotuseinterpreter, Image - 12/16/2024 [facility] [address] [place] [address] Mammography Report Signed Patient: Fernando Botello#: [id number] : 1980Acct:[id number] Age/Sex: 44 / FADM Date: 12/16/24 Loc: HO.MAMMO Attending Dr: Amy Mclain MD Ordering Physician: Amy Mclain MDResults: 2Benign Findings Date of Service: 12/16/24Follow Up: 1 Year From Orig ina Mammogram Procedure(s): MM tomosynthesis diagnostic BI Accession Number(s): [id number] cc: Amy Mclain MD EXAMINATION: MM DIAGNOSTIC DIGITAL BREAST TOMOSYNTHESIS, BILATERAL CLINICAL INFORMATION: Two-year follow-up for focal asymmetry in the retroareolar region of the right breast without prior sonographic correlate. Family history of breast cancer including patient's mother. Benign right breast needle core biopsy upper outer quadrant. COMPARISON: Mammography: Comparison is made with relevant prior exams. TECHNIQUE: Digital breast mammography with tomosynthesis is performed in both the craniocaudal and mediolateral oblique views along with computer-aided detection (CAD). FINDINGS: The breasts are heterogeneously dense, which may obscure small masses (ACR BI-RADS breast composition Category c). Bilateral circumscribed oval masses which wax and consistent with benign fibrocystic changes. Left: There are no significant masses, abnormal calcifications, or other abnormalities. Right: Marker clip in the upper outer breast from previous benign needle core biopsy. Focal asymmetry in the retroareolar region is not significantly changed from prior mammograms dating back for 2 years and therefore benign. No prior sonographic correlate was seen. No suspicious calcifications or other abnormal findings. Results are provided to the patient at time of visit by the technologist. MM/MM tomosynthesis diagnostic BI IMPRESSION: No mammographic evidence of malignancy. ASSESSMENT: BI-RADS BI-RADS 2 - Benign Findings RECOMMENDATION: 1 year F/U This patient's information was entered into a reminder system with a target due date for their next mammogram. Electronically signed by: Maisha Canales DO 12/16/2024 01:16 PM EDT RP Workstation: [employer] Dictated By: Maisha Canales DO Signed By: <Electronically signed by Maisha Canales DO in OV> 12/16/24 1316 DD/ 1258 TD/TT: 12/16/24 1313 Seed Collector: Amy Mclain MD IMG BI PROCEDURES Final Result * Hepatitis C Antibody with Reflex to HCV, RNA, Quantitative, Real-Time PCR (04/08/2024 9:34 AM EDT) Hepatitis C Antibody Nonreactive Nonreactive [facility] Comment:Antibodies to HCV no t detected; does not exclude early acuteHCV infection. Blood Venous blood specimen / Unknown 04/08/2024 9:34 AM EDT 04/08/2024 2:37 PM EDT Amy Mclain MD LAB BLOOD ORDERABLES Final Resul t [facility] [address] [place] [address] [phone] * HIV-1/2 Antigen and Antibodies, Fourth Generation, with Reflexes (04/08/2024 9:34 AM EDT) HIV AB/AG Nonreactive Nonreactive [facility] Comment:HIV-1 p24 Ag and/or HIV-1/HIV-2 Ab not detected.A test result that is nonreactive does not exclude thepossibility of exposure to or infection with HIV-1 and/orHIV-2. Nonreactive results in this assay for individualswith prior exposure to HIV-1 and/or HIV-2 may be due toantigen and antibody levels that are below the limit ofdetection of this assay.The [employer] HIV Ag/Ab Combo assay result andsupplemental assay results should be interpreted inconjunction with the patient's clinical presentation,history and other laboratory results. If the results areinconsistent with clinical evidence, additional testing issuggested to confirm the result. Blood Venous blood specimen / Unknown 04/08/2024 9:34 AM EDT 04/08/2024 2:37 PM EDT us Amy Mclain MD LAB BLOOD ORDERABLES Final Resul t [facility] [address] [place] [phone] * Image-Guided Pap with Age-Based Screening Protocols (10/16/2022 9:29 AM EDT) Comment [facility] Comment: This order for age-based cervical cancer and STI screening follows ACOG guidelines(PB 168, 140, LMK018). See individual assays for performing site location. Clinical Information: None given [facility] LMP: NONE GIVEN [facility] Prev. PAP: NONE GIVEN [facility] Prev. BX: NONE GIVEN [facility] SOURCE: None given [facility] Statement Of Adequacy: [facility] Comment: Satisfactory for evaluation. Endocervical/transformation zone component present. Interpretation/ Result: Negative for intraepithelial lesion or malignancy. [facility] COMMENT: This Pap test has been evaluated with computer assisted technology. [facility] [employer] t: [facility] Comment: MPG, CT(ASCP) CT screening location: [address] [address] (Always Message) [facility] Comment: EXPLANATORY NOTE: The Pap is a screening test for cervical cancer. It is not a diagnostic test and is subject to false negative and false positive results. It is most reliable when a satisfactory sample, regularly obtained, is submitted with relevant clinical findings and history, and when the Pap result is evaluated along with historic and current clinical information. HPV nRNA E6/E7 Not Detected Not Detected [facility] Comment: Methodology: Psychologist Military Personnel-Mediated Amplification This assay detects E6/E7 viral messenger RNA (mRNA) from 14 high-risk HPV types (16,18,31,33,35,39,45,51,52,56,58,59,66,68). Cervical sources are required for HPV testing. If a vaginal source from a patient who has had a total hysterectomy with removal of cervix was submitted, please contact the testing laboratory for alternative testing options. For additional information, please refer to http://education.[employer]/faq/PHB411e2 (This link if provided for information/ educational purposes only.) Cytology specimen container (physical object) 10/16/2022 9:29 AM EDT 10/17/2022 12:59 AM EDT us Rayne Berkowitz [facility] BLOOD ORDERABLES Annabella ohara Result [facility] [address], [place] [address] [facility] [address] [place] [address] * Lipid Panel, Standard (09/26/2022 8:40 AM EDT) Cholesterol, Total 174 <200 mg/dL [facility] HDL Cholesterol 60 > OR = 50 mg/dL [facility] Triglycerides 114 <150 mg/dL [facility] LDL Cholesterol 93 mg/dL (calc) [facility] Comment: Reference range: <100 Desirable range <100 mg/dL for primary prevention; <70 mg/dL for patients with CHD or diabetic patients with > or = 2 CHD risk factors. LDL-C is now calculated using the Faheem-Franco calculation, which is a validated novel method providing better accuracy than the Friedewald equation in the estimation of LDL-C. Faheem SS et al. NURY. 2013;310(19): 5645-3883 (http://education.[employer]/faq/KJM989) Chol/HDLC Ratio 2.9 <5.0 (calc) [facility] Non-HDL Cholesterol 114 <130 mg/dL (calc) [facility] Comment: For patients with diabetes plus 1 major ASCVD risk factor, treating to a non-HDL-C goal of <100 mg/dL (LDL-C of <70 mg/dL) is considered a therapeutic option. Blood Venous blood specimen / Unknown 09/26/2022 8:40 AM EDT 09/26/2022 8:41 AM EDT Narrative [facility] - 09/27/2022 1:47 AM EDT FASTING:YES FASTING: YES Amy Mclain MD LAB BLOOD ORDERABLES Final Resul t [facility] [address], [place] [address] [facility] [address] [place] [address] from Last 3 Months or Most Recently Relevant to Health Maintenance Insurance [facility] C[place] AD[place] Care Teams Welt Sewer Relationship Specialty Start Date End Date Amy Mclain MD [address] [place] [phone] PCP - General Family Medicine 06/20/12
[2025-04-16 14:32] LABS: Alanine Aminotransferase 17 U/L (0-31); Albumin Level 4.4 g/dL (3.5-5.0); Alkaline Phosphatase 84 U/L (39-117); Anion Gap 11 (12-20); Aspartate Amino Transferase 24 U/L (5-31); Blood Urea Nitrogen 7 mg/dL (9-16); Calcium 9.0 mg/dL (8.4-10.2); Carbon Dioxide 23 mmol/L (22-29); Chloride 109 mmol/L (96-108); Cholesterol 178 mg/dL (<200); Estimated Glomerular Filt Rate > 60; HDL Cholesterol 52 mg/dL (>40); Potassium 4.1 mmol/L (3.3-5.1); Sodium 139 mmol/L (135-145); Total Protein 7.1 g/dL (6.5-8.0); Triglycerides 92 mg/dL (<150)
== END 2025-04-16 09:03 | disposition home or self-care (01) ==
LOC: HO.CHCLDS 09:02
PROVIDERS: Visit Provider Student in an Organized Health Care Education/Training Program
DX: I10 Essential (primary) hypertension (principal)
CPT/HCPCS: 36415; 80048; 80061; 80076

== ENCOUNTER 2025-05-04 11:39 | Outpatient (REF) | payer MEDICAID, SELFPAY ==
--- OUTSIDE RECORDS SUMMARY | 2025-05-04 10:00 | XMS_ITS | Encounter Summary ---
Author Organization [employer] Address [address] [facility] 7t [place] [address] Care Team Providers Care Soil Technician Name Role Phone Amy Mclain MD Primary Care Provider [phone] Encounter Details Date Type Department Care Team ([facility] Contact Info) Description 05/04/2025 10:00 AM EDT Office Visit [facility] MED & PEDS [address] [place], [place] [phone] Jaki Chilel CNP [address] [place] [address] Encounter for physical examination (Primary Dx); Anxiety; Encounter for immunization Social History Tobacco Use Types Packs/Day Years [...] 9:55 AM EDT documented in this encounter Plan of Treatment Upcoming Encounters Date Type Department Care Team (Late st Contact Info) Description 05/07/2025 1:30 PM EDT Office Visit [facility] ADULT DENTAL [address] [place] [address] Seferino Junior [address] [place] [address] 06/09/2025 9:30 AM EST Office Visit [facility] MED & PEDS [address] [place] [address] Jaki Chilel CNP [address] [place] [address] Pending Results Name Type Priority Associated Diagnoses Date /Time Lipid Panel, Standard Lab Routine Encounter for physical examination 05/04/2025 11:46 AM EDT Comprehensive Metabolic Panel Lab Routine Encounter for physical examination 05/04/2025 11:46 AM EDT Scheduled Orders Name Type Priority Associated Diagnoses Orde r Schedule TSH W/Reflex to FT4 Lab Routine Encounter for physical examination Expected: 05/04/2025 (Approximate), Expires: 05/04/2026 documented as of this encounter Procedures Procedure Name Priority Date/Time Associated Diagnosis Comments CBC WITH AUTO DIFFERENTIAL Routine 05/04/2025 11:46 AM EDT Encounter for physical examination LIPID PANEL, STANDARD Routine 05/04/2025 11:46 AM EDT Encounter for physical examination COMPREHENSIVE METABOLIC PANEL Routine 05/04/2025 11:46 AM EDT Encounter for physical examination documented in this encounter Results * (ABNORMAL) CBC auto differential (05/04/2025 11:46 AM EDT) White Blood Count 5.0 4.8 - 10.8 X10*3/uL [facility] Red Blood Count 4.23 4.20 - 5.50 X10*6/uL [facility] Hemoglobin 10.0(L) 12.0 - 16.0 g/dl [facility] Hematocrit 33.3(L) 37.0 - 47.0 % [facility] Mean Corpuscular Volume 78.7(L) 80.0 - 98.0 fL [facility] Mean Corpuscular Hemoglobin 23.6(L) 27.0 - 33.0 pg [facility] Mean Corpuscular HGB Conc 30.0(L) 31.0 - 35.0 g/dl [facility] Red Cell Distribution Width 17.6(H) 11.0 - 16.0 % [facility] Platelet Count 333 160 - 400 X10*3/uL [facility] Mean Platelet Volume 9.1(L) 9.4 - 12.3 fL [facility] Neutrophils Percent Auto 60.9 45 - 73 % [facility] Imm Gran Pct Auto 0.4 0.0 - 0.4 % [facility] Lymphocytes Percent Auto 28.9 20 - 40 % [facility] Monocytes Percent Auto 5.8 2 - 11 % [facility] Eosinophils Percent Auto 3.0 0 - 4 % [facility] Basophils Percent Auto 1.0 0 - 2 % [facility] NRBC Pct Auto 0.0 0.0 - 0.2 /100WBC [facility] Neutrophils Absolute Auto 3.1 2.0 - 8.3 x10*3/uL [facility] Imm Gran Abs Auto 0.02 0.00 - 0.03 X10*3/uL [facility] Lymphocytes Absolute Auto 1.5 1.2 - 4.9 X10*3/uL [facility] Monocytes Absolute Auto 0.3 0.1 - 1.2 X10*3/uL [facility] Eosinophils Absolute Auto 0.2 0.0 - 0.4 X10*3/uL [facility] Basophils Absolute Auto 0.1 0.0 - 0.2 X10*3/uL [facility] NRBC Abs Auto 0.000 0.0 - 0.012 X10*3/uL [facility] Blood Venous blood specimen / Unknown 05/04/2025 11:46 AM EDT 05/04/2025 2:30 PM EDT [facility] SMT TECHNICIAN LAB BLOOD ORDERABLES Annabella l Result [facility] [address] [place] [phone] documented in this encounter Visit Diagnoses Diagnosis Encounter for physical examination- Primary Anxiety Anxiety state, unspecified Encounter for immunization documented in this encounter Additional Health Concerns Assessment Noted Time PHQ-9 Depression Total Score: 7 03/19/20 24 11:31 AM EDT documented as of this encounter Care Teams Soil Technician Relationship Specialty Start Date End Date Amy Mclain MD [address] [place] [phone] PCP - General Family Medicine 06/20/12 documented as of this encounter
[2025-05-04 14:40] LABS: MANUAL DIFF FLAG NO
[2025-05-04 14:45] LABS: Alanine Aminotransferase 19 U/L (0-31); Albumin Level 4.3 g/dL (3.5-5.0); Alkaline Phosphatase 85 U/L (39-117); Anion Gap 9 (12-20); Aspartate Amino Transferase 29 U/L (5-31); Blood Urea Nitrogen 8 mg/dL (9-16); Calcium 9.0 mg/dL (8.4-10.2); Carbon Dioxide 26 mmol/L (22-29); Chloride 110 mmol/L (96-108); Cholesterol 201 mg/dL (<200); Estimated Glomerular Filt Rate > 60; HDL Cholesterol 49 mg/dL (>40); Hematocrit 33.3 % (37.0-47.0); Hemoglobin 10.0 g/dl (12.0-16.0); Imm Gran Abs Auto 0.02 X10*3/uL (0.00-0.03); Imm Gran Pct Auto 0.4 % (0.0-0.4); Lymphocytes Absolute Auto 1.5 X10*3/uL (1.2-4.9); Mean Corpuscular HGB Conc 30.0 g/dl (31.0-35.0); Mean Corpuscular Hemoglobin 23.6 pg (27.0-33.0); Mean Corpuscular Volume 78.7 fL (80.0-98.0); NRBC Abs Auto 0.000 X10*3/uL (0.0-0.012); NRBC Pct Auto 0.0 /100WBC (0.0-0.2); Platelet Count 333 X10*3/uL (160-400); Potassium 3.8 mmol/L (3.3-5.1); Red Blood Count 4.23 X10*6/uL (4.20-5.50); Sodium 141 mmol/L (135-145); Total Protein 7.0 g/dL (6.5-8.0); Triglycerides 111 mg/dL (<150); White Blood Count 5.0 X10*3/uL (4.8-10.8)
--- OUTSIDE RECORDS SUMMARY | 2025-05-04 15:00 | XMS_ITS | Encounter Summary ---
Author Organization [employer] Address [address] [facility] [address] [place] [address] Care Team Providers Care Automotive Electrical Fitter Name Role Phone Amy Mclain MD Primary Care Provider [phone] Reason for Visit * Reason Onset Date Comments Chart Prep 05/01/2025 Encounter Details Date Type Department Care Team ([facility] Contact Info) Description 05/01/2025 Telephone [facility] [address] [place] [address] Amy Mclain MD [address] [place] [address] Chart Prep Social History Tobacco Use Types Packs/Day Years [...] encounter Miscellaneous Notes * Telephone Encounter - Funmi Oakley MA - 05/01/2025 11:05 AM EDT Chart Prep Labs: done Images: done Referrals: appointment pending Vaccines due: Covid, Flu, and HPV Screenings: LMP and PISQ Overdue care gaps: SBIRT, PHQ-9, Oral health screening, and Tobacco documented in this encounter Plan of Treatment Upcoming Encounters Date Type Department Care Team (Late st Contact Info) Description 05/07/2025 1:30 PM EDT Office Visit [facility] ADULT DENTAL [address] [place] [address] Seferino Junior [address] [place] [address] 06/09/2025 9:30 AM EST Office Visit [facility] MED & PEDS [address] [place], [place] [phone] Jaki Chilel CNP [address] [place] [address] documented as of this encounter Visit Diagnoses Not on filedocumented in this encounter Additional Health Concerns Assessment Noted Time PHQ-9 Depression Total Score: 7 03/19/20 24 11:31 AM EDT documented as of this encounter Care Teams Automotive Electrical Fitter Relationship Specialty Start Date End Date Amy Mclain MD [address] [place] [phone] PCP - General Family Medicine 06/20/12 documented as of this encounter
--- OUTSIDE RECORDS SUMMARY | 2025-05-04 15:00 | XMS_ITS | Encounter Summary ---
Author Organization [employer] Address [address] [facility] [address] [place] [address] Care Team Providers Care Physical Integration Practitioner Name Role Phone Amy Mclain MD Primary Care Provider [phone] Encounter Details Date Type Department Care Team (Latest Contact Info) Description 05/04/2025 Travel Social History Tobacco Use Types Packs/Day Years [...] AM EDT documented as of this encounter Plan of Treatment Upcoming Encounters Date Type Department Care Team (Late st Contact Info) Description 05/07/2025 1:30 PM EDT Office Visit [facility] ADULT DENTAL [address] [place] [address] Seferino Junior [address] [place] [address] 06/09/2025 9:30 AM EST Office Visit [facility] MED & PEDS [address] [place] [address] Jaki Chilel, ANODIC OPERATOR [address] [place] [address] documented as of this encounter Visit Diagnoses Not on filedocumented in this encounter Additional Health Concerns Assessment Noted Time PHQ-9 Depression Total Score: 7 03/19/20 24 11:31 AM EDT documented as of this encounter Care Teams Physical Integration Practitioner Relationship Specialty Start Date End Date Amy Mclain MD [address] [place] [phone] PCP - General Family Medicine 06/20/12 documented as of this encounter
--- OUTSIDE RECORDS SUMMARY | 2025-05-04 15:00 | XMS_ITS | Encounter Summary ---
Author Organization [employer] Address 75 [facility] 7t [place] [address] Care Team Providers Care Nanny/Household Manager Name Role Phone Amy Mclain MD Primary Care Provider [phone] Reason for Visit * Reason Onset Date Comments Nurse Triage 02/07/2023 Encounter Details Date Type Department Care Team ([facility] Contact Info) Description 02/07/2023 Telephone C [facility] [address] [place] [address] Amy Mclain MD 505 [place] [address] Nurse Triage Social History Tobacco Use Types [...] Upcoming Encounters Date Type Department Care Team ([facility] st Contact Info) Description 05/07/2025 1:30 PM EDT Office Visit [facility] ADULT DENTAL [address] SUKHI Smith [phone] Sandi, Seferino 505 [place] [address] 06/09/2025 9:30 AM EST Office Visit [facility] MED & PEDS [address] [place], [place] [phone] Jaki Chilel CNP [address] [place], [place] [phone] documented as of this encounter Visit Diagnoses Not on filedocumented in this encounter Care Teams Nanny/Household Manager Relationship Specialty Start Date End Date Amy Mclain MD [address] [place] [phone] PCP - General Family Medicine 06/20/12 documented as of this encounter
--- OUTSIDE RECORDS SUMMARY | 2025-05-04 15:00 | XMS_ITS | Clinical Summary ---
Author Organization [employer] Address 75 [facility] 7t [place] [address] Care Team Providers Care Metal Drill Press Operator Name Role Phone Amy Mclain MD Primary Care Provider [phone] Allergies No known active allergies Medications * This document contains information received from the source organization and may not represent a complete record from that organization. Blood Pressure kitIndications: Elevated blood pressure reading 1 kit in the morning. 1 kit 06/29/20 22 Active minoxidil (Rogaine) 2 % external solutionIndicat ions:Alopecia areata Apply topically 2 times daily. 60 mL 3 09/26/19 23 Active spironolactone (Aldactone) 100 MG tabletIndicatio ns:Traction alopecia,Acne vulgaris Take 1 tablet (100 mg) by mouth in the morning. 30 tablet 11 11/14/19 23 Active hydrOXYzine HCl (Atarax) 10 MG tabletIndicatio ns:Anxiety Take 2.5 tablets (25 mg) by mouth if needed at bedtime for anxiety. 30 tablet 2 01/28/20 24 Active cloNIDine (Catapres-TTS) 0.1 MG/24HR Place 1 patch on the skin 1 (one) time per week. 4 patch 07/30/19 25 Active pseudoephedrine (Sudafed) 30 MG tablet Take 1 tablet (30 mg) by mouth every 4 (four) hours if needed for congestion for up to 10 days. 30 tablet 08/21/19 25 Active famotidine (Pepcid) 20 MG tabletIndicatio ns:Gastroesopha geal reflux disease, unspecified whether esophagitis present Take 1 tablet (20 mg) by mouth if needed in the morning and at bedtime for heartburn for up to 7 days. 14 tablet 12/24/19 25 Active esomeprazole (NexIUM) [address] capsule Take 1 capsule (20 mg) by mouth before breakfast. Do not open capsule. 30 capsule 11 01/27/20 25 026 Active escitalopram (Lexapro) 10 MG tabletIndicatio ns:Anxiety Take 1 tablet (10 mg) by mouth Once per day. 30 tablet 2 05/04/20 25 026 Active sertraline (Zoloft) 25 MG tablet Take 1 tablet (25 mg) by mouth Once per day. 30 tablet 11 07/30/19 25 025 Discontinued Active Problems Problem Noted Date Diagnosed Date [...] will benefit from continuing OP therapy with [facility], discussing medication management options with PCP, and exploring coping mechanisms of grounding and guided deep breathing. . At this time Ambar Botello meets criteria for Visit Diagnoses: Problem List Items Addressed This Visit Other Anxiety Patient ready to address current needs Yes Strengths- Ambar is in OP therapy at [facility] and in the action stage of change PLAN: 1. Follow up with [facility]: Recommended for follow-up: As needed 2. Patient goal is to explore coping mechanisms to decrease anxiety symptoms 3. Behavioral Recommendations a. Guided deep breathing b. Guided grounding c. Continue OP therapy Depressive disorder 06/28/2022 GERD (gastroesophageal reflux disease) 2 Encounters Date Type Department Care Team Description 05/04/2025 10:00 AM EDT Office Visit [facility] MED & PEDS [address] [place] [address] Jaki Chilel CNP Encounter for physical examination (Primary Dx); Anxiety; Encounter for immunization 05/04/2025 Patient Outreach [facility] MEDIC[facility] [address] [place] [address] Amy Mclain MD Care Coordination (W outreach for SDOH housing search-referral completed ) 05/04/2025 Travel 05/01/2025 Telephone [facility] [address] [place] [address] Amy Mclain MD Chart Prep 04/13/2025 Telephone [facility] ADULT DENTAL [address] [place] [address] Seferino Junior 04/08/2025 Telephone [facility] ADULT DENTAL [address] [place] [address] Seferino Junior 03/30/2025 8:00 AM EDT Office Visit [facility] ADULT DENTAL [address] [place] [address] Seferino Junior 03/16/2025 Orders Only [facility] MED & PEDS [address] [place] [address] Amy Mclain MD Hypertension, unspecified type (Primary Dx) 03/15/2025 Telephone [facility] MED & PEDS [address] [place] [address] Amy Mclain MD Lab Orders 02/22/2025 9:00 AM EDT Office Visit [facility] ADULT DENTAL [address] [place] [address] Tim Medrano Dental calculus (Primary Dx) 02/19/2025 Telephone [facility] ADULT DENTAL [address] [place] [address] David Tello DMD new patient appt from Last 3 Months Immunizations Immunization Administration Dates Next Due DTP 1980,1981,1981 DTaP 09/05/1985,03/08/1984 Hep B, adult 05/03/1997,08/08/1995,12/06/1994 Influenza injectable quadriv alent preservative free 04/20/2015 Influenza, IIV3, injectable 07/29/2014 Influenza, Split (incl. terrance fied surface antigen) 03/13/2013 Influenza, seasonal, injecta ble, preservative free 05/04/2025 MMR 07/08/1994,10/07/1983 OPV, Trivalent 09/05/1985, 4,1981,1980 TD [...] Mass Index 25.06 05/04/2025 9:55 AM EDT Plan of Treatment Upcoming Encounters Date Type Department Care Team (Late st Contact Info) Description 05/07/2025 1:30 PM EDT Office Visit [facility] ADULT DENTAL [address] [place], [place] [phone] Seferino Junior [address] [place], [place] [phone] 06/09/2025 9:30 AM EST Office Visit [facility] MED & PEDS [address] [place] [address] Jaki Chilel, CONTACT AGENT [address] [place] [address] Health Maintenance Due Date Last Done Comments Family Planning (PISQ) 1996 HPV Vaccines (1 - 3-dose series) 1996 Dental Oral Exam 01/17/2009 07/19/2008 COVID-19 Vaccine ( season) 2025 Depression Screening 03/19/2025 03/19/2024, 03/19/20 24 Dental Prophylaxis 08/26/2025 02/22/2025 Mammogram 12/16/2025 12/16/2024, 12/2024, 07/13/2024, Additional history exists Dental X-Ray: Bitewings 02/23/2026 02/22/2025 Tobacco Screening 03/30/2026 03/30/2025 Alcohol/Substance Use Screening 05/04/2026 05/04/2025 Disability Screening 05/04/2026 05/04/2025 SDOH Screening 05/04/2026 05/04/2025 Cervical Cancer Screening 10/17/2027 HPV/Cotest 10/17/2027 10/16/2022 Pap Smear 10/17/2027 10/16/2022 Dental X-Ray: Full Mouth 02/24/2028 02/22/2025 Lipid Panel 04/16/2030 05/04/2025, 04/07, 09/26/2022 Zoster Vaccines (1 of 2) 2031 DTaP/Tdap/Td Vaccines (9 - Td or Tdap) 04/08/2034 04/08/2024, 07/16/2012, 09/29/2010, Additional history exists RSV Patients and Patients Aged 60 years or older (1 - 1-dose 75+ series) 2056 IPV Vaccines Completed 09/05/1985, 0 07/1983, 1981, Additional history exists Hepatitis B Vaccines Completed 05/03/1997, 08/08/1995, 12/06/1994 HIV Screening Completed 04/08/2024 Hepatitis C Screening Completed 04/08/2024 Influenza Vaccine Completed 05/04/2025, , 07/29/2014, Additional history exists HIB Vaccines Aged Out No longer eligi [...] Procedure Name Priority Date/Time Associated Diagnosis Comments COMPREHENSIVE METABOLIC PANEL Routine 05/04/2025 11:46 AM EDT Encounter for physical examination LIPID PANEL, STANDARD Routine 05/04/2025 11:46 AM EDT Encounter for physical examination CBC WITH AUTO DIFFERENTIAL Routine 05/04/2025 11:46 AM EDT Encounter for physical examination HEPATIC FUNCTION PANEL Routine 9:05 AM EDT Hypertension, unspecified type LIPID PANEL, STANDARD Routine 04/16/2025 9:05 AM EDT Hypertension, unspecified type BASIC METABOLIC PANEL Routine 04/16/2025 9:05 AM EDT Hypertension, unspecified type CASE PRESENTATION, DETAILED AND EXTENSIVE TREATMENT PLANNING [...] 10/16/2022 9:29 AM EDT Cervical cancer screening COMPREHENSIVE ORAL EVALUATION - NEW OR ESTABLISHED PATIENT Routine 07/19/2008 12:00 AM EST from Last 3 Months or Most Recently Relevant to Health Maintenance Results * (ABNORMAL) CBC auto differential (05/04/2025 11:46 AM EDT) White Blood Count 5.0 4.8 - 10.8 X10*3/uL [facility] Red Blood Count 4.23 4.20 - 5.50 X10*6/uL [facility] Hemoglobin 10.0(L) 12.0 - 16.0 g/dl [facility] Hematocrit 33.3(L) 37.0 - 47.0 % [facility] Mean Corpuscular Volume 78.7(L) 80.0 - 98.0 fL [facility] Mean Corpuscular Hemoglobin 23.6(L) 27.0 - 33.0 pg [facility] Mean Corpuscular HGB Conc 30.0(L) 31.0 - 35.0 g/dl [facility] Red Cell Distribution Width 17.6(H) 11.0 - 16.0 % [facility] Platelet Count 333 160 - 400 X10*3/uL [facility] Mean Platelet Volume 9.1(L) 9.4 - 12.3 fL [facility] Neutrophils Percent Auto 60.9 45 - 73 % [facility] Imm Gran Pct Auto 0.4 0.0 - 0.4 % [facility] Lymphocytes Percent Auto 28.9 20 - 40 % [facility] Monocytes Percent Auto 5.8 2 - 11 % [facility] Eosinophils Percent Auto 3.0 0 - 4 % [facility] Basophils Percent Auto 1.0 0 - 2 % [facility] NRBC Pct Auto 0.0 0.0 - 0.2 /100WBC [facility] Neutrophils Absolute Auto 3.1 2.0 - 8.3 x10*3/uL [facility] Imm Gran Abs Auto 0.02 0.00 - 0.03 X10*3/uL [facility] Lymphocytes Absolute Auto 1.5 1.2 - 4.9 X10*3/uL [facility] Monocytes Absolute Auto 0.3 0.1 - 1.2 X10*3/uL [facility] Eosinophils Absolute Auto 0.2 0.0 - 0.4 X10*3/uL [facility] Basophils Absolute Auto 0.1 0.0 - 0.2 X10*3/uL [facility] NRBC Abs Auto 0.000 0.0 - 0.012 X10*3/uL [facility] Blood Venous blood specimen / Unknown 05/04/2025 11:46 AM EDT 05/04/2025 2:30 PM EDT Wyattmushtaq Chilel [facility] LAB BLOOD ORDERABLES Annabella l Result Performing Organization Address City/[facility]/ZIP Co de Phone Number [facility] [address] [place] [phone] * Hepatic Function Panel (04/16/2025 9:05 AM EDT) Bilirubin, Total 0.5 0.0 - 1.0 mg/dL [facility] Bilirubin, Direct 0.2 0.0 - 0.5 mg/dL [facility] Aspartate Amino Transferase 24 5 - 31 U/L [facility] Alanine Aminotransferase 17 0 - 31 U/L [facility] Total Protein 7.1 6.5 - 8.0 g/dL [facility] Albumin Level 4.4 3.5 - 5.0 g/dL [facility] Alkaline Phosphatase 84 39 - 117 U/L [facility] Blood Venous blood specimen / Unknown 04/16/2025 9:05 AM EDT 04/16/2025 2:12 PM EDT us Amy Mclain MD LAB BLOOD ORDERABLES Final Resul t Performing Organization Address [facility] Co de Phone Number [facility] [address] [place] [phone] * (ABNORMAL) Lipid Panel, Standard (04/16/2025 9:05 AM EDT) Triglycerides 92 <150 mg/dL [facility] Comment:Desirable Triglyceri de: less than 150 mg/dLBorderline High Triglyceride 150-199 mg/dLHigh Triglyceride: 200-499 mg/dLVery High Triglyceride: greater than or equal to 5OO mg/dL Cholesterol 178 <200 mg/dL [facility] Comment:Desirable Cholestero l: less than 200 mg/dLBorderline High Cholesterol: 200-239 mg/dLHigh Cholesterol: greater than 239 mg/dL LDL Cholesterol Calculated 108(H) <100 mg/dL [facility] Comment:Desirable LDL: less than 100 mg/dLNear Optimal/Above Optimal LDL: 110- 129 mg/dLBorderline High LDL: 130-159 mg/dLHigh LDL: 160-189 mg/dLVery High LDL: greater than or equal to 190 mg/dL HDL Cholesterol 52 >40 mg/dL [facility] Comment:Desirable HDL: great er than 40 mg/dL Note: This HDL assay may give artificially low results in patients with liver disease. Blood Venous blood specimen / Unknown 04/16/2025 9:05 AM EDT 04/16/2025 2:12 PM EDT Amy Mclain MD LAB BLOOD ORDERABLES Final Resul t Performing Organization Address [facility] Co de Phone Number [facility] [address] [place] [phone] * (ABNORMAL) Basic Metabolic Panel (04/16/2025 9:05 AM EDT) Sodium 139 135 - 145 mmol/L [facility] Potassium 4.1 3.3 - 5.1 mmol/L [facility] Chloride 109(H) 96 - 108 mmol/L [facility] Carbon Dioxide 23 22 - 29 mmol/L [facility] Anion Gap 11(L) 12 - 20 [facility] Urea Nitrogen (BUN) 7(L) 9 - 16 mg/dL [facility] Creatinine, Serum 0.65 0.5 - 1.4 mg/dL [facility] Estimated Glomerular Filt Rate >60 [facility] Comment:Chronic Kidney Disea se: Estimated GFR < 60 mL/min/1.09u4Uioyni Kidney Disease: Estimated GFR < 15 mL/min/1.73m2 Glucose 92 60 - 115 mg/dL [facility] Calcium 9.0 8.4 - 10.2 mg/dL [facility] Blood Venous blood specimen / Unknown 04/16/2025 9:05 AM EDT 04/16/2025 2:12 PM EDT Amy Mclain MD LAB BLOOD ORDERABLES Final Resul t Performing Organization Address City/[facility]/ZIP Co de Phone Number [facility] [address] [place] [phone] [phone] * BI Mammogram Diagnostic Tomosynthesis Bilateral (12/16/2024 12:58 PM EDT) Anatomical Region Laterality Modality Breast Bilateral Mammography 12/16/2024 12:5 8 PM EDT Narrative 12/16/2024 1:18 PM EDT [address] [place] [address] Mammography Report Signed Patient: Ambar Botello MR#: [id number] : 1980 Acct:[id number] Age/Sex: 44 / F ADM Date: 12/16/24 Loc: HO.MAMMO Attending Dr: Amy Mclain MD Ordering Physician: Amy Mclain MD Results: 2Benign Findings Date of Service: 12/16/24 Follow Up: 1 Year From [facility] Mammogram Procedure(s): MM tomosynthesis diagnostic BI Accession Number(s): [id number] cc: Amy Mclain MD EXAMINATION: MM DIAGNOSTIC [...] Canales DO 12/16/2024 01:16 PM EDT RP Dictated By: Maisha Canales DO Signed By: <Electronically signed by Maisha Canales DO in OV> 12/16/24 1316 DD/ 1258 TD/TT: 12/16/24 1313 Legal Entity Controller: Procedure Note Donotuseinterpreter, Image - 12/16/2024 [facility] [address] [place] [address] Mammography Report Signed Patient: Fernando Botello#: [id number] : 1980Acct:[id number] Age/Sex: 44 / FADM Date: 12/16/24 Loc: HO.MAMMO Attending Dr: Amy Mclain MD Ordering Physician: Amy Mclain MDResults: 2Benign Findings Date of Service: 12/16/24Follow Up: 1 Year From Orig ina Mammogram Procedure(s): MM tomosynthesis diagnostic BI Accession Number(s): [id number] cc: Amy Mclain MD EXAMINATION: MM DIAGNOSTIC [...] 12/16/24 1316 DD/ 1258 TD/TT: 12/16/24 1313 Legal Entity Controller: Amy Mclain MD IMG BI PROCEDURES Final Result * Hepatitis C Antibody with Reflex to HCV, RNA, Quantitative, Real-Time PCR (04/08/2024 9:34 AM EDT) Hepatitis C Antibody Nonreactive Nonreactive [facility] Comment:Antibodies to HCV no t detected; does not exclude early acuteHCV infection. Blood Venous blood specimen / Unknown 04/08/2024 9:34 AM EDT 04/08/2024 2:37 PM EDT Amy Mclain MD LAB BLOOD ORDERABLES Final Resul t [facility] [address] [place] [phone] [phone] * HIV-1/2 Antigen and Antibodies, Fourth Generation, with Reflexes (04/08/2024 9:34 AM EDT) HIV AB/AG Nonreactive Nonreactive [facility] Comment:HIV-1 p24 Ag and/or HIV-1/HIV-2 Ab not detected.A test result that is nonreactive does not exclude thepossibility of exposure to or infection with HIV-1 and/orHIV-2. Nonreactive results in this assay for individualswith prior exposure to HIV-1 and/or HIV-2 may be due toantigen and antibody levels that are below the limit ofdetection of this assay.The [employer] HIV Ag/Ab Combo assay result andsupplemental assay results should be interpreted inconjunction with the patient's clinical presentation,history and other laboratory results. If the results areinconsistent with clinical evidence, additional testing issuggested to confirm the result. Blood Venous blood specimen / Unknown 04/08/2024 9:34 AM EDT 04/08/2024 2:37 PM EDT us Amy Mclain MD LAB BLOOD ORDERABLES Final Resul t [facility] [address] [place] [phone] * Image-Guided Pap with Age-Based Screening Protocols (10/16/2022 9:29 AM EDT) Comment [employer] Comment: This order for age-based cervical cancer and STI screening follows ACOG guidelines(PB 168, 140, LKM030). See individual assays for performing site location. Clinical Information: None given [facility] LMP: NONE GIVEN [facility] [place] [employer] [facility] Prev. PAP: NONE GIVEN [facility] Prev. BX: NONE GIVEN [facility] SOURCE: None given [facility] Statement Of Adequacy: [facility] Comment: Satisfactory for evaluation. Endocervical/transformation zone component present. Interpretation/ Result: Negative for intraepithelial lesion or malignancy. [facility] COMMENT: This Pap test has been evaluated with computer assisted technology. [facility] [place] [employer] t: [facility] Comment: MPG, CT(ASCP) CT screening location: [address] [address] (Always Message) [employer] [facility] Comment: EXPLANATORY NOTE: The Pap is a [...] HPV nRNA E6/E7 Not Detected Not Detected [employer] [facility] Comment: Methodology: [employer]isher-Mediated Amplification This assay detects E6/E7 viral messenger RNA (mRNA) from 14 high-risk HPV types (16,18,31,33,35,39,45,51,52,56,58,59,66,68). Cervical sources are required for HPV testing. If a vaginal source from a patient who has had a total hysterectomy with removal of cervix was submitted, please contact the testing laboratory for alternative testing options. For additional information, please refer to http://education.[employer]/faq/AVA586j0 (This link if provided for information/ educational purposes only.) Cytology specimen container (physical object) 10/16/2022 9:29 AM EDT 10/17/2022 12:59 AM EDT Rayne Berkowitz [facility] LAB BLOOD ORDERABLES Annabella ohara Result [address], [place] [phone] [facility] [place] [facility] [address] [place] [phone] from Last 3 Months or Most Recently Relevant to Health Maintenance Insurance [facility] [place] AD[place] Care Teams Metal Drill Press Operator Relationship Specialty Start Date End Date Amy Mclain MD [address] [place] [phone] PCP - General Family Medicine 06/20/12
--- OUTSIDE RECORDS SUMMARY | 2025-05-04 15:00 | XMS_ITS | Encounter Summary ---
Author Organization [employer] Address 75 [facility] 7t [place] [address] Care Team Providers Care Compressed Gas Equipment Mechanic Name Role Phone Amy Mclain MD Primary Care Provider [phone] Reason for Visit * Reason Onset Date Comments new patient appt 02/19/2025 Encounter Details Date Type Department Care Team ([facility] Contact Info) Description 02/19/2025 Telephone C [facility] [address] [place] [address] David Tello, DMD [address] [place] [address] new patient appt Social History Tobacco Use [...] 05/07/2025 1:30 PM EDT Office Visit [facility] ADULT DENTAL [address] [place] [address] Seferino Junior [address] [place] [address] 06/09/2025 9:30 AM EST Office Visit [facility] MED & PEDS [address] [place] [address] Jaki Chilel CNP [address] [place] [address] documented as of this encounter Visit Diagnoses Not on filedocumented in this encounter Additional Health Concerns Assessment Noted Time PHQ-9 Depression Total Score: 7 03/19/20 24 11:31 AM EDT documented as of this encounter Care Teams Compressed Gas Equipment Mechanic Relationship Specialty Start Date End Date Amy Mclain MD [address] [place] [address] PCP - General Family Medicine 06/20/12 documented as of this encounter
--- OUTSIDE RECORDS SUMMARY | 2025-05-04 15:00 | XMS_ITS | Encounter Summary ---
Author Organization [employer] Address 75 [facility] 7t [place] [address] Care Team Providers Care Steel Post Installer Name Role Phone Amy Mclain MD Primary Care Provider [phone] Reason for Visit * Reason Comments Care Coordination CHW outreach for SDO H housing search-referral completed Encounter Details Date Type Department Care Team (Latest Contact Info) Description 05/04/2025 Patient Outreach [facility] [address] [place] [address] Amy Mclain MD [address] [place] [address] Care Coordination (CHW outreach for SDOH housing search-referral completed ) Social History Tobacco Use Types Packs/Day Years [...] AM EDT documented as of this encounter Progress Notes * Bennett Cruz - 05/04/2025 1:14 PM EDT CHW Bennett Cruz, placed outbound call to patient for assistance with SDOH as a referral was received by the provider. Patient's name and were confirmed. Patient screened positive for the following SDOH housing insecurities. Patient states is staying with her friend but is searching for her own apartment. CHW referral patient to the list of application mail out to her address on file. Patient verbalizes understanding, and able to agree with plan to follow up herself. Patient educated on extended clinic hours on Mondays through Wednesdays, and Walk-In Urgent Care Located in [facility]. Patient provided with after-hours line for [facility], , which offer night time triage service and option to transfer to behavioral health professional provider if needed. documented in this encounter Plan of Treatment Upcoming Encounters Date Type Department Care Team ([facility] st Contact Info) Description 05/07/2025 1:30 PM EDT Office Visit [facility] [address] [place] [address] Seferino Junior [address] [place] [address] 06/09/2025 9:30 AM EST Office Visit [facility] MED [facility] PEDS [address] [place], [place] [phone] Jaki Chilel, BASIA [address] [place], [place] [phone] documented as of this encounter Visit Diagnoses Not on filedocumented in this encounter Additional Health Concerns Assessment Noted Time PHQ-9 Depression Total Score: 7 03/19/20 24 11:31 AM EDT documented as of this encounter Care Teams Steel Post Installer Relationship Specialty Start Date End Date Amy Mclain MD [address] [place] [address] PCP - General Family Medicine 06/20/12 documented as of this encounter
== END 2025-05-04 11:40 | disposition home or self-care (01) ==
LOC: HO.CHCLDS 11:39
DX: Z00.00 Encounter for general adult medical examination without abnormal findings (principal)
CPT/HCPCS: 36415; 80053; 80061; 84443; 85025

== ENCOUNTER 2025-05-05 09:27 | Outpatient (AMB) | payer MEDICAID, SELFPAY ==
--- OUTSIDE RECORDS SUMMARY | 2025-05-04 10:00 | XMS_ITS | Encounter Summary ---
Author Organization [employer] Address [address] [facility] 7[address] [place] [address] Care Team Providers Care Billet Shearer Name Role Phone Amy Mclain MD Primary Care Provider [phone] Encounter Details Date Type Department Care Team ([facility] Contact Info) Description 05/04/2025 10:00 AM EDT Office Visit [facility] MED & PEDS [address] [place], [place] [phone] Dave Chilel CNP [address] [place] [address] Encounter for physical examination (Primary Dx); Anxiety; Encounter for immunization; Iron deficiency anemia secondary to inadequate dietary iron intake Social History Tobacco Use Types Packs/Day Years [...] before you got money to buy more: Sometimes True 2024 Within the past 12 months,th e food you bought just didn't last and you didn't have enough money to get more: Sometimes True 05/04/2025 Transportation Answer Date Recorded In the past [...] Answer Date Recorded Internet Access Q1 No 05/04/2025 Internet Access Q2 My internet/Wi-Fi ac cess is not consistent or reliable 05/04/2025 Comments No Sex and Gender Information Value Date Recorded Sex Assigned at Female 05/07/2022 10:15 AM EDT Legal Sex Female 10:15 AM EDT Gender Identity Female 06/29/2022 9:20 AM EST Sexual Orientation Straight 05/07/2022 10 :15 AM EDT documented as of this encounter Last Filed Vital Signs Vital Sign Reading Time Taken Comments Blood Pressure 126/88 05/04/2025 9:55 AM EDT Pulse 88 05/04/2025 9:55 AM EDT Temperature 36.7 C (98 F) 05/04/2025 9:55 AM EDT Respiratory Rate 14 05/04/2025 9:55 AM EDT Oxygen Saturation 98% 05/04/2025 9:55 AM EDT Inhaled Oxygen Concentration - - Weight 62.1 kg (137 lb) 05/04/2025 9:55 AM EDT Height 157.5 cm (5' 2 ) 05/04/2025 9:55 AM EDT Body Mass Index 25.06 05/04/2025 9:55 AM EDT documented in this encounter Progress Notes * Dave Chilel CNP - 05/04/2025 10:00 AM EDT Subjective: Ambar Botello is a 45 y.o. female who presents to the office for a physical exam. Previous PCP Amy Mclain MD. Current concerns: Anxiety, reports a lot of emotional stress in her personal life. Reports sertraline has been causing daytime drowsiness. Problem List[1] Surgical History[2] Family History[3] Social History Living situation: has secure housing Employment/Education: Daycare provider/teacher Diet/exercise: Substance use: denies all substance use Sexual activity: not currently Contraception: n/a Mental health: No data recorded No data recorded Patient's last menstrual period was 04/26/2025. Allergies[4] Review of Systems Vitals: 05/04/25 0955 BP: 126/88 BP Location: Left arm Patient Position: Sitting BP Cuff Size: Adult Pulse: 88 Resp: 14 Temp: 98 ??F (36.7 ??C) TempSrc: Oral SpO2: 98% Weight: 137 lb (62.1 kg) Height: 5' 2 (1.575 m) Physical Exam Constitutional: General: She is not in acute distress. Appearance: Normal appearance. She is not ill-appearing. HENT: Head: Normocephalic and atraumatic. Right Ear: Tympanic membrane, ear canal and external ear normal. There is no impacted cerumen. Left Ear: Tympanic membrane, ear canal and external ear normal. There is no impacted cerumen. Nose: No congestion or rhinorrhea. Mouth/Throat: Mouth: Mucous membranes are moist. Pharynx: No oropharyngeal exudate or posterior oropharyngeal erythema. Eyes: General: No scleral icterus. Right eye: No discharge. Left eye: No discharge. Extraocular Movements: Extraocular movements intact. Pupils: Pupils are equal, round, and reactive to light. Cardiovascular: Rate and Rhythm: Normal rate and regular rhythm. Pulses: Normal pulses. Heart sounds: Normal heart sounds. No murmur heard. No friction rub. No gallop. Pulmonary: Effort: Pulmonary effort is normal. No respiratory distress. Breath sounds: Normal breath sounds. No stridor. No wheezing, rhonchi or rales. Chest: Chest wall: No tenderness. Abdominal: General: Abdomen is flat. Bowel sounds are normal. There is no distension. Palpations: Abdomen is soft. There is no mass. Tenderness: There is no abdominal tenderness. There is no guarding. Musculoskeletal: General: Normal range of motion. Cervical back: Normal range of motion and neck supple. No tenderness. Right lower leg: No edema. Left lower leg: No edema. Lymphadenopathy: Cervical: No cervical adenopathy. Skin: General: Skin is warm and dry. Capillary Refill: Capillary refill takes less than 2 seconds. Neurological: General: No focal deficit present. Mental Status: She is alert and oriented to person, place, and time. Psychiatric: Mood and Affect: Mood normal. Behavior: Behavior normal. Thought Content: Thought content normal. Judgment: Judgment normal. Assessment & Plan Encounter for physical examination 45 yo f with normal physical exam, no acute abnormalities 1. Anticipatory guidance discussed. Specific topics reviewed: drugs, ETOH, and tobacco, importance of regular dental care, importance of regular exercise, importance of varied diet, minimize junk food, and sex; STD and prevention as appropriate. 2. Age appropriate screenings discussed 3. Pt agreed to flu shot today. Routine Screening and Health Maintenance Optometry: Yes Dentist: Yes BMD: n/a ASCVD risk: 45 y.o. femalelow, no known CVD or risk factors. Lab Review: orders written for new lab studies as appropriate; see orders Routine Cancer Screening Breast CA: last mammogram 12/2024 Bi Rads 2 negative. Cervical CA: 10/2022 NILM- HPV neg, next due 10/2027 Colon CA: due 03/2026 Lung CA: not indicated Orders: CBC auto differential; Future Lipid Panel, Standard; Future Comprehensive Metabolic Panel; Future TSH W/Reflex to FT4; Future Anxiety We will discontinue sertraline and switch to lexapro daily due to sedative effects from sertraline Reviewed side effects of new medication, when to call clinic, when to stop med (such as w/ worsening of depression with mental health meds or occurrence of rash, allergic reaction) Orders: escitalopram (Lexapro) 10 MG tablet; Take 1 tablet (10 mg) by mouth Once per day. Encounter for immunization Orders: FLU VACCINE TRIVALENT [id number] (Fluarix) 19 yrs + Current Medications[5] Immunization History Administered Date(s) Administered DTP 1981, 1981, 1981 DTaP 03/08/1984, 09/05/1985 Hep B, adult 12/06/1994, 08/08/1995, 05/03/1997 Influenza injectable quadrivalent preservative free 04/20/2015 Influenza, IIV3, injectable 07/29/2014 Influenza, Split (incl. purified surface antigen) 03/13/2013 Influenza, seasonal, injectable, preservative free 05/04/2025 MMR 10/07/1983, 07/08/1994 OPV, Trivalent 1981, 1981, 12/07/1983, 09/05/1985 TD (adult), 2 Lf tetanus toxoid, preservative free, adsorbed 07/08/1995 Tdap 09/29/2010, 07/16/2012, 04/08/2024 Follow up in about 1 month (around 06/04/2025) for f/u stomach pain and back pain . [1] Patient Active Problem List Diagnosis Anxiety Depressive disorder GERD (gastroesophageal reflux disease) Parotiditis Elevated blood pressure reading Abscess of axilla, left Staphylococcus aureus infection [2] Past Surgical History: Procedure Laterality Date CHOLECYSTECTOMY TUBAL LIGATION [3] Family History Problem Relation Name Age of Onset Breast cancer Mother 40 age 52 in 2022, in remission [4] No Known Allergies [5] Current Outpatient Medications Medication Sig Dispense Refill Blood Pressure kit 1 kit in the morning. 1 kit 0 cloNIDine (Catapres-TTS) 0.1 MG/24HR Place 1 patch on the skin 1 (one) time per week. 4 patch 0 escitalopram (Lexapro) 10 MG tablet Take 1 tablet (10 mg) by mouth Once per day. 30 tablet 2 esomeprazole (NexIUM) [address] capsule Take 1 capsule (20 mg) by mouth before breakfast. Do not open capsule. 30 capsule 11 famotidine (Pepcid) 20 MG tablet Take 1 tablet (20 mg) by mouth if needed in the morning and at bedtime for heartburn for up to 7 days. 14 tablet 0 hydrOXYzine HCl (Atarax) 10 MG tablet Take 2.5 tablets (25 mg) by mouth if needed at bedtime for anxiety. 30 tablet 2 minoxidil (Rogaine) 2 % external solution Apply topically 2 times daily. 60 mL 3 pseudoephedrine (Sudafed) 30 MG tablet Take 1 tablet (30 mg) by mouth every 4 (four) hours if needed for congestion for up to 10 days. 30 tablet 0 spironolactone (Aldactone) 100 MG tablet Take 1 tablet (100 mg) by mouth in the morning. 30 tablet 11 No current facility-administered medications for this visit. documented in this encounter Miscellaneous Notes * Assessment & Plan Note - Dave Chilel CNP - 05/04/2025 10:00 AM EDT Associated Problem(s): Anxiety We will discontinue sertraline and switch to lexapro daily due to sedative effects from sertraline Reviewed side effects of new medication, when to call clinic, when to stop med (such as w/ worsening of depression with mental health meds or occurrence of rash, allergic reaction) Orders: escitalopram (Lexapro) 10 MG tablet; Take 1 tablet (10 mg) by mouth Once per day. * Addendum Note - Dave Chilel CNP - 05/04/2025 10:00 AM EDTAddended by: DAVE CHILEL on: 05/05/2025 09:36 AM Modules accepted: Orders documented in this encounter Plan of Treatment Upcoming Encounters Date Type Department Care Team (Late st Contact Info) Description 05/07/2025 1:30 PM EDT Office Visit [facility] ADULT DENTAL [address] [place] [address] Seferino Junior [address] [place] [address] 06/09/2025 9:30 AM EST Office Visit [facility] MED [facility] PEDS [address] [place] [address] Dave Chilel CNP [address] [place] [address] documented as of this encounter Procedures Procedure Name Priority Date/Time Associated Diagnosis Comments TSH W/REFLEX TO FT4 Routine 05/04/2025 1 1:46 AM EDT Encounter for physical examination CBC WITH AUTO DIFFERENTIAL Routine 05/04/2025 11:46 AM EDT Encounter for physical examination LIPID PANEL, STANDARD Routine 05/04/2025 11:46 AM EDT Encounter for physical examination COMPREHENSIVE METABOLIC PANEL Routine 05/04/2025 11:46 AM EDT Encounter for physical examination documented in this encounter Results * TSH W/Reflex to FT4 (05/04/2025 11:46 AM EDT) TSH reflex Free T4 2.00 0.32 - 4.0 uIU/mL [facility] Blood Venous blood specimen / Unknown 05/04/2025 11:46 AM EDT 05/04/2025 2:09 PM EDT [facility] LAB BLOOD ORDERABLES Annabella l Result [facility] [address] [place] [phone] * (ABNORMAL) Comprehensive Metabolic Panel (05/04/2025 11:46 AM EDT) Sodium 141 135 - 145 mmol/L [facility] Potassium 3.8 3.3 - 5.1 mmol/L [facility] Chloride 110(H) 96 - 108 mmol/L [facility] Carbon Dioxide 26 22 - 29 mmol/L [facility] Anion Gap 9(L) 12 - 20 [facility] Urea Nitrogen (BUN) 8(L) 9 - 16 mg/dL [facility] Creatinine, Serum 0.66 0.5 - 1.4 mg/dL [facility] Estimated Glomerular Filt Rate >60 [facility] Comment:Chronic Kidney Disea se: Estimated GFR < 60 mL/min/[id number] Kidney Disease: Estimated GFR < 15 mL/min/1.73m2 Glucose 75 60 - 115 mg/dL [facility] Calcium 9.0 8.4 - 10.2 mg/dL [facility] Bilirubin, Total 0.5 0.0 - 1.0 mg/dL [facility] Aspartate Amino Transferase 29 5 - 31 U/L [facility] Alanine Aminotransferase 19 0 - 31 U/L [facility] Total Protein 7.0 6.5 - 8.0 g/dL [facility] Albumin Level 4.3 3.5 - 5.0 g/dL [facility] Alkaline Phosphatase 85 39 - 117 U/L [facility] Blood Venous blood specimen / Unknown 05/04/2025 11:46 AM EDT 05/04/2025 2:09 PM EDT [facility] LAB BLOOD ORDERABLES Annabella l Result Performing Organization Address [facility] de Phone Number [facility] [address] [place] [phone] * (ABNORMAL) Lipid Panel, Standard (05/04/2025 11:46 AM EDT) Triglycerides 111 <150 mg/dL [facility] Comment:Desirable Triglyceri de: less than 150 mg/dLBorderline High Triglyceride 150-199 mg/dLHigh Triglyceride: 200-499 mg/dLVery High Triglyceride: greater than or equal to 5OO mg/dL Cholesterol 201(H) <200 mg/dL [facility] Comment:Desirable Cholestero l: less than 200 mg/dLBorderline High Cholesterol: 200-239 mg/dLHigh Cholesterol: greater than 239 mg/dL LDL Cholesterol Calculated 130(H) <100 mg/dL [facility] Comment:Desirable LDL: less than 100 mg/dLNear Optimal/Above Optimal LDL: 110- 129 mg/dLBorderline High LDL: 130-159 mg/dLHigh LDL: 160-189 mg/dLVery High LDL: greater than or equal to 190 mg/dL HDL Cholesterol 49 >40 mg/dL [facility] Comment:Desirable HDL: great er than 40 mg/dL Note: This HDL assay may give artificially low results in patients with liver disease. Blood Venous blood specimen / Unknown 05/04/2025 11:46 AM EDT 05/04/2025 2:09 PM EDT [facility] LAB BLOOD ORDERABLES Annabella l Result Performing Organization Address [facility]/ZIP Co de Phone Number [facility] [address] [place] [address] [phone] * (ABNORMAL) CBC auto differential (05/04/2025 11:46 AM EDT) White Blood Count 5.0 4.8 - 10.8 X10*3/uL [facility] Red Blood Count 4.23 4.20 - 5.50 X10*6/uL [facility] Hemoglobin 10.0(L) 12.0 - 16.0 g/dl [facility] Hematocrit 33.3(L) 37.0 - 47.0 % [facility] Mean Corpuscular Volume 78.7(L) 80.0 - 98.0 fL [facility] Mean Corpuscular Hemoglobin 23.6(L) 27.0 - 33.0 pg [facility] Mean Corpuscular HGB Conc 30.0(L) 31.0 - 35.0 g/dl [facility] Red Cell Distribution Width 17.6(H) 11.0 - 16.0 % [facility] Platelet Count 333 160 - 400 X10*3/uL [facility] Mean Platelet Volume 9.1(L) 9.4 - 12.3 fL [facility] Neutrophils Percent Auto 60.9 45 - 73 % [facility] Imm Gran Pct Auto 0.4 0.0 - 0.4 % [facility] Lymphocytes Percent Auto 28.9 20 - 40 % [facility] Monocytes Percent Auto 5.8 2 - 11 % [facility] Eosinophils Percent Auto 3.0 0 - 4 % [facility] Basophils Percent Auto 1.0 0 - 2 % [facility] NRBC Pct Auto 0.0 0.0 - 0.2 /100WBC [facility] Neutrophils Absolute Auto 3.1 2.0 - 8.3 x10*3/uL [facility] Imm Gran Abs Auto 0.02 0.00 - 0.03 X10*3/uL [facility] Lymphocytes Absolute Auto 1.5 1.2 - 4.9 X10*3/uL [facility] Monocytes Absolute Auto 0.3 0.1 - 1.2 X10*3/uL [facility] Eosinophils Absolute Auto 0.2 0.0 - 0.4 X10*3/uL [facility] Basophils Absolute Auto 0.1 0.0 - 0.2 X10*3/uL [facility] NRBC Abs Auto 0.000 0.0 - 0.012 X10*3/uL [facility] Blood Venous blood specimen / Unknown 05/04/2025 11:46 AM EDT 05/04/2025 2:30 PM EDT Wyattximushtaq Chilel [facility] LAB BLOOD ORDERABLES Annabella l Result [facility] [address] [place] [phone] documented in this encounter Visit Diagnoses Diagnosis Encounter for physical examination- Primary Anxiety Anxiety state, unspecified Encounter for immunization Iron deficiency anemia secondary to inadequate dietary iron intake documented in this encounter Additional Health Concerns Assessment Noted Time PHQ-9 Depression Total Score: 7 03/19/20 24 11:31 AM EDT documented as of this encounter Care Teams Billet Shearer Relationship Specialty Start Date End Date Amy Mclain MD [address] [place] [phone] PCP - General Family Medicine 06/20/12 documented as of this encounter
--- NOTE | 2025-05-05 09:35 | MHC.OFFVIS ---
Vital Signs 05/05/25 09:43 Height 5 ft 2 in Weight 135 lb BMI 24.7 BP 123/85 Blood Pressure Location Lt brachial Position Sitting Pulse 84 Pulse Oximetry (%) 97 Oxygen Delivery Method Room Air Intake Visit Reasons: gerd Intake Note: Patient new consult for GERD. Patient cc: Nauseas, abdominal pain, GERD, diarrhea after dinner and cheese. Denies any other GI issues. Collision Center Manager Required: No Accompanied by: Self / Same As Patient Allergies No Known Allergies Allergy (Verified 05/05/25 09:35) Medication List - Last Reconciled 05/05/25 by Monique García CNP esomeprazole magnesium 20 mg PO QAM sertraline 25 mg PO QAM HPI HPI gerd: Details: Patient is a 45-year-old female with PMH of depression, hypertension. Referred by PCP for further evaluation of acid reflux. Ambar presents with constant upper abdominal pain, reported as primarily in the epigastric region, ongoing since summer and significantly worsening over the past two months. Pain is described as persistent and impacts meal choices due to concern that eating will provoke symptoms. She notes the pain is aggravated by dairy and greasy/fatty foods; attempts at dietary adjustments, including omission of cheese and switch to 1% or almond milk, resulted in partial symptomatic relief. She also reports nausea, most recently with an episode of vomiting last weekend, but current symptoms limited to nausea and abdominal pain. Kloj-egy-rchanbe acid reducers (omeprazole and esomeprazole) have had minimal benefit. No recent travel outside of the country but shares trip to [place] in January. No heartburn or regurgitation at present, though there was some heartburn in the past. She is experiencing increased frequency of loose stools following meals since January, whereas bowel movements were previously regular; no hematochezia reported. Appetite has decreased secondary to discomfort, and she now eats smaller, more frequent meals to mitigate symptoms. She underwent cholecystectomy approximately five to six years ago. Comorbid conditions include scoliosis and anemia. History of intermittent NSAID use for back pain, but no recent use in the last three months. She has recently initiated sertraline for anxiety/depression. Patient denies: fever/chills, vomiting, n,dysphasia, unintentional wt loss or melena/hematochezia. Social hx: ETOH use, previously social drinking on weekends, abstinent since December except for one episode resulting in exacerbation of symptoms -denies recreational drug use -non-smoker - family hx as below -denies personal hx of CA -denies significant cardiopulmonary history -tolerated anesthesia in the past without difficulty. [facility] Medical History (Updated 05/05/25 @ 12:44 by Monique García CNP) Anemia Nausea Colon cancer screening Epigastric pain Hypertension Breast mass, right Surgical History History of tubal ligation Family History Mother Breast cancer Social History Alcohol intake: current Alcohol intake frequency: holidays/special occasions only Patient Tobacco Use Status: Never used Tobacco Female Reproductive History Menstrual Age of Menarche: 13 Review of Systems Const Reports as per HPI ENT Reports as per HPI Card Reports as per HPI Resp Reports as per HPI GI Reports as per HPI Reports as per HPI Physical Exam Vital Signs: Last Vital Signs Pulse 84 05/05/25 09:43 BP 123/85 05/05/25 09:43 Pulse Ox 97 05/05/25 09:43 Oxygen Delivery Method Room Air 05/05/25 09:43 BMI result Body Mass Index 24.7 Const General: healthy appearing, no acute distress and well developed Nutritional Appearance: average body habitus Orientation/consciousness: patient oriented x3 HEENT Head: Yes normal to inspection, Yes normocephalic and Yes atraumatic Face and sinus: Yes normal facial exam Eyes General: appearance normal, both eyes and all related structures Neck Neck: Yes normal visual inspection Resp Effort & Inspection: normal respiratory effort, able to speak in complete sentences, no tracheal deviation and symmetric chest movement Cardio Jugular venous distension: no JVD GI Inspection: Yes normal to inspection and No distended Palpation (GI): Soft to palpation, not firm, Tenderness to palpation present (GI) in the epigastrum and No hepatosplenomegaly present Auscultation: normal bowel sounds Neuro General: patient oriented x3 Gait exam (Neuro): Normal gait present Psych Appearance: grossly normal Mental Status: mental status grossly normal Speech and movement: Normal speech and movement present Affect: normal affect Attitude: cooperative Thought process: Normal thought process present Thought content: Normal thought content present Insight: Good insight present (Psych) Judgement: Good judgement present (Psych) Assessment & Plan Assessment & Plan (1) Epigastric pain: Code(s): R10.13 - Epigastric pain Category: Medical Plan: Chronic, persistent upper abdominal pain with meal association, partial dairy intolerance, minimal response to PPIs, and recent travel history Additional Testing: - H. pylori breath test (scheduled after >2 weeks PPI cessation; earliest May 18) - Upper endoscopy scheduled for further evaluation (and concomitant screening colonoscopy per USPSTF guidelines for age) - Baseline bloodwork pending for anemia/nutrient deficiency Medication Management: - Hold esomeprazole for minimum 2 weeks pre-H. pylori testing; substitute sucralfate (liquid) up to BID for symptom relief until testing complete - Continue sertraline as prescribed Lifestyle Recommendations: - Strict avoidance of dairy, greasy, or fatty foods; continue smaller, frequent meals; trial of predominantly whole foods with avoidance of processed/packaged items - Complete abstinence from alcohol until further notice Follow-Up: - Will call with test results after H. pylori breath test (scheduled May 21, 2025) - GI follow-up after procedures for further mgmt as indicated (2) Colon cancer screening: Code(s): Z12.11 - Encounter for screening for malignant neoplasm of colon Category: Medical Plan: Pt approaching age 45, per USPSTF guidelines, appropriate to initiate CRC screening Additional Testing: - Screening colonoscopy scheduled concurrently with upper endoscopy Medication Management: - Colonoscopy prep provided; instructions reviewed (clear liquid diet, NPO after specified time, Gatorade for prep, avoid red/blue/purple liquids) Lifestyle Recommendations: - Arrange transportation for day of procedure due to sedation Follow-Up: - post procedure (3) Anemia: Code(s): D64.9 - Anemia, unspecified Category: Medical Qualifiers: Anemia type: unspecified type Qualified Code(s): D64.9 - Anemia, unspecified Plan: CBC notable for microcytic anemia; patient with history of heavy menses, but additional GI workup indicated due to presenting symptoms Additional Testing: - Expanded iron studies, B12, folate per additional labs ordered Medication Management: - None at present; await lab results Lifestyle Recommendations: - Monitor for fatigue, palpitations, melena, hematochezia. Advise iron-rich foods as tolerated Follow-Up: - Pending lab results, reassess at GI follow-up Plan Follow-up after endoscopy or sooner as needed Time: I spent a total of 60 minutes on the date of encounter which includes: Preparing to see the patient (reviewed previous documentation, test results and medical history) Performing a medically appropriate exam and/or evaluation Ordering medications, tests, and procedures Documenting clinical information in the health record Orders: Orders H Pylori Breath Test Today R10.13 - Epigastric pain, R11.0 - Nausea IRON PROFILE Today D64.9 - Anemia, unspecified Vitamin B12 and Folate Today D64.9 - Anemia, unspecified Referrals GI Procedure Notification R10.13 - Epigastric pain, R11.0 - Nausea, Z12.11 - Encounter for screening for malignant neoplasm of colon Medications: New bisacodyl Take per colonoscopy instructions 20 mg (4 x 5 mg) PO ONCE 4 tabs 0RF polyethylene glycol 3350 (Miralax) per colonoscopy prep instructions 238 grams PO ONCE 238 grams 0RF sucralfate Take 10mL up to twice daily as needed upset stomach 1 g (10 mL) PO BID PRN 500 mL 0RF acid reflux Coding Level of Care Code New Pt New Pt Level 5 (37217) Patient Type New Diagnoses Epigastric pain R10.13 Colon cancer screening Z12.11 Anemia, unspecified type D64.9 Anemia type: unspecified type
[2025-05-05 09:43] VITALS: BP 123/85; PULSE 84; O2SAT 97; BMI 24.7
--- OUTSIDE RECORDS SUMMARY | 2025-05-05 11:10 | XMS_ITS | Encounter Summary ---
Author Organization [employer] Address [address] [facility] [facility] [address] [place] [address] Care Team Providers Care Film Or Videotape Editor Name Role Phone Amy Mclain MD Primary Care Provider [phone] Encounter Details Date Type Department Care Team [...] Description 05/07/2025 1:30 PM EDT Office Visit [facility] ADULT DENTAL [address] [place] [address] Seferino Junior [address] [place] [address] 06/09/2025 9:30 AM EST Office Visit [facility] MED & PEDS [address] [place] [address] Jaki Chilel, HAT PRESSER [address] [place] [address] documented as of this encounter Visit Diagnoses Not on filedocumented in this encounter Additional Health Concerns Assessment Noted Time PHQ-9 Depression Total Score: 7 03/19/20 24 11:31 AM EDT documented as of this encounter Care Teams Film Or Videotape Editor Relationship Specialty Start Date End Date Amy Mclain MD [address] [place] [id number] PCP - General Family Medicine 06/20/12 documented as of this encounter
--- OUTSIDE RECORDS SUMMARY | 2025-05-05 11:10 | XMS_ITS | Encounter Summary ---
Author Organization [employer] Address [address] [place] [address] Care Team Providers Care Marine Oiler Name Role Phone Aym Mclain MD Primary Care Provider [phone] Encounter Details Date Type Department Care Team ([facility] Contact Info) Description 05/05/2025 Telephone [facility]S [address] [place] [address] Amy Mclain MD [address] [place] [address] Social History Tobacco Use Types Packs/Day Years [...] as of this encounter Miscellaneous Notes * Patient Education Note - Suzette Sesay RN - 05/05/2025 1:59 PM EDT Images from the original note were not included. Educaci?n del paciente Tabla de contenidos Colesterol elevado (High Cholesterol) Colesterol elevado (hiperlipidemia) (Video: High Cholesterol (Hyperlipidemia)) Para rome videos y toda brady educaci?n en l?julia, visite [email or web address] o escanee giuliana c?digo QR con brady tel?fono inteligente. El acceso a giuliana contenido expirar?? en un a?o. Nota del m?dico Buenos d?as desde el [facility] [place]. Adjunta encontrar?? informaci?n relacionada con denia resultados en relaci?n con el mensaje de MyChart que se envi?. Si tiene preguntas, por favor comun?quese a gregorio?s de MyChart o por tel?fono al [phone]. Colesterol elevado High Cholesterol El colesterol elevado es tobias afecci?n que se caracteriza porque la dung tiene niveles altos de tobias sustancia brian, cerosa y parecida a la grasa (colesterol). El h?gado fabrica todo el colesterol que el organismo necesita. El organismo humano necesita deanna?as cantidades de colesterol para formar las c?lulas. El exceso de colesterol se obtiene de los alimentos que se consumen. La dung transporta el colesterol desde el h?gado al sedrick del cuerpo. Si tiene el colesterol elevado, pueden acumularse dep?sitos (placas) en las goodwin de las arterias. Las arterias son los vasossangu?neos que transportan la dung desde el coraz?n al sedrick del cuerpo. Las placas causan que las arterias se estrechen y se endurezcan. Las placas de colesterol aumentan el riesgo de sufrir un infarto de miocardio y un accidente cerebrovascular. Trabaje con el m?dico para mantener las concentraciones de colesterol en un rango saludable. ?Qu?? incrementa el riesgo? Los siguientes factores pueden hacer que sea m?s propenso a desarrollar esta afecci?n: Consumir alimentos con alto contenido de grasa animal (grasa saturada) o colesterol. Tener sobrepeso. No hacer suficiente ejercicio f?sico. Tener antecedentes familiares de colesterol alto (hipercolesterolemia familiar). Consumir productos con tabaco. Tener diabetes. ?Cu?les son los signos o s?ntomas? En la mayor?a de los casos, el colesterol alto no causa keaton?n s?ntoma por lo general. En los casos graves, los niveles muy altos de colesterol pueden causar: Protuberancias de grasa debajo de la piel (xantomas). Un anillo muñoz o bryan alrededor del centro nany (pupila) del naida. ?C?mo se diagnostica? Esta afecci?n se puede diagnosticar en funci?n de los resultados de un an?lisis de dung. Si es mayor de 20?a?os, es posible que el m?dico le controle el nivel de colesterol cada 4?a?6?a?os. Los controles pueden ser m?s frecuentes si tiene el colesterol elevado u otros factores de riesgo de enfermedad card?dior. En el an?lisis de dung de colesterol, se determina lo siguiente: El colesterol ?luisito?, o colesterol LDL. Giuliana es el principal tipo de colesterol que causa enfermedades card?acas. El nivel recomendado es de menos de?100 mg/dl (2.59?mmol/l). El colesterol ?lewis?, o colesterol HDL. El HDL ayuda a proteger contra la enfermedad card?dior porque limpia las arterias y arrastra el LDL al h?gado para que lo procese. El nivel recomendado de HDL es de?60 mg/dl (1.55?mmol/l) o m?s. Triglic?ridos. Estos son grasas que el organismo puede almacenar o quemar [place] [address] de energ?a. El nivel recomendado es de menos de?150 mg/dl (1.69?mmol/l). Colesterol total. Mide la cantidad total de colesterol en la dung, e incluye el colesterol LDL, el colesterol HDL y los triglic?ridos. El nivel recomendado es de menos de?200 mg/dl (5.17?mmol/l). ?C?mo se trata? El tratamiento para el colesterol alto comienza con cambios en el estilo de nik, tales kingston dieta y ejercicio. Cambios en la dieta. Es posible que le indiquen que consuma alimentos con m?s fibra y menos grasas saturadas o az?car agregada. Cambios en el estilo de nik. Estos pueden incluir hacer actividad f?heather con regularidad, mantenerun peso saludable y dejar de consumir productos con tabaco. Medicamentos. Estos se administran cuando los cambios en la dieta y en el estilo de nik no herrera sido eficaces. Es posible que le receten medicamentos llamados estatinas para bajar denia niveles de colesterol. Siga estas instrucciones en brady casa: Comida y bebida Siga tobias dieta saludable y equilibrada. Esta dieta incluye lo siguiente: ? Porciones diarias de frutas y verduras frescas, congeladas o enlatadas. ? Porciones diarias de alimentos integrales con alto contenido de fibra. ? Alimentos con bajo contenido de grasas saturadas y grasas trans. Estos incluyen carne de ave y pescado sin piel, ortega de carne magros y productos l?cteos descremados. ? Tobias variedad de pescado, especialmente pescado graso que contenga ?cidos grasos omega 3. Prop?ngase comer pescado al menos dos veces por semana. Evite los alimentos y las bebidas que tengan az?car agregada. Use m?todos de cocci?n saludables, kingston asar, grillar, hervir, hornear, escalfar, cocer al vapor y saltear. No fr?a los alimentos excepto para saltearlos. Si demetrio alcohol: ? Limite la cantidad que demetrio a lo siguiente: ? De 0 a 1 medida por d?a para las mujeres que no est?n embarazadas. ? De 0 a 2 medidas por d?a para los hombres. ? Sepa cu?nta cantidad de alcohol hay en las bebidas. En los [place], tobias medida equivale a tobias botella de cerveza de 12?oz (355?ml), un vaso de vino de 5?oz (148?ml) o un vaso de tobias bebida alcoh?lica de ruel graduaci?n de 1??oz (44?ml). Estilo de nik Kimberley ejercicio con regularidad. Trate de hacer un total de 150 minutos de actividad f?heather por semana. Aumente la cantidad de ejercicio f?sico que realiza mediante actividades kingston la jardiner?a, salir a caminar o usar las escaleras. No consuma keaton?n producto que contenga nicotina o tabaco. Estos productos incluyen cigarrillos, tabaco para mascar y aparatos de vapeo, kingston los cigarrillos electr?nicos. Si necesita ayuda para dejar de consumir estos productos, consulte al m?dico. Indicaciones generales Use los medicamentos de venta luis y los recetados solamente kingston se lo haya indicado el m?dico. Concurra a todas las visitas de seguimiento. [place] es importante. D?nde buscar m?s informaci?n [place] Heart Association (Asociaci?n Estadounidense del Coraz?n): www.heart.org National Heart, Lung, and Blood [place] (Instituto Nacional del Coraz?n, los Pulmones y la Dung): www.nhlbi.nih.gov Comun?quese con un m?dico si: Tiene dificultad para alcanzar o mantener tobias alimentaci?n sue y un peso saludable. Est?? por comenzar un programa de ejercicios. No puede dejar de fumar. Solicite ayuda de inmediato si: Siente dolor en el pecho. Tiene dificultad para respirar. Tiene molestias o dolor en la iliana?bula, el jenna, la espalda, los hombros o los brazos. Tiene s?ntomas de un accidente cerebrovascular. ?BE FAST? es tobias manera f?cil de recordar los principales signos de advertencia de un accidente cerebrovascular: ? B: Balance (equilibrio). Los signos son mareos, dificultad repentina para caminar o p?rdida del equilibrio. ? E - Eyes (ojos). Los signos son problemas para rome o un cambio repentino en la visi?n. ? F: Face (sachin). Los signos son debilidad repentina o entumecimiento del sachin, o el sachin o el p?rpado que se caen hacia un lado. ? A: Arms (brazos). Los signos son debilidad o entumecimiento en un brazo. [place] sucede de repente ygeneralmente en un lado del cuerpo. ? S: Speech (habla). Los signos son dificultad para hablar, hablar arrastrando las palabras o dificultad para comprender lo que las personas dicen. ? T: Time (tiempo). Es tiempo de llamar al servicio de emergencias. Anote la hora a la que comenzaron los s?ntomas. Presenta otros signos de un accidente cerebrovascular, [place] los siguientes: ? Dolor de shaun s?bito e intenso que no tiene causa aparente. ? N?useas o v?mitos. ? Convulsiones. Estos s?ntomas pueden representar un problema grave que constituye tobias emergencia. No espere a rome si los s?ntomas desaparecen. Solicite atenci?n m?dica de inmediato. Comun?quese con el servicio de emergencias de brady localidad (911 en los [place]). No conduzca por denia propios medios hasta el h ospital. Resumen Las placas de colesterol aumentan el riesgo de sufrir un infarto de miocardio y un accidente cerebrovascular. Trabaje con el m?dico para mantener las concentraciones de colesterol en un rango saludable. Siga tobias dieta saludable y equilibrada, kimberley ejercicio con regularidad y mantenga un peso saludable. No consuma keaton?n producto que contenga nicotina o tabaco. Estos productos incluyen cigarrillos, tabaco para mascar y aparatos de vapeo, [place] los cigarrillos electr?nicos. Obtenga ayuda de inmediato si tiene cualquier s?ntoma de un accidente cerebrovascular. Esta informaci?n no tiene [place] fin reemplazar el consejo del m?dico. Aseg?rese de hacerle al m?dicocualquier pregunta que tenga. Document Released: 2006-06-24 Document Updated: 2021-09-11 Document Reviewed: 2021-09-11 [employer] Patient Education ? 2024 [employer] * Telephone Encounter - Suzette Sesay RN - 05/05/2025 9:55 AM EDT Pt education sent via [employer] on cholesterol management. documented in this encounter Plan of Treatment Upcoming Encounters Date Type Department Care Team ([facility] st Contact Info) Description 05/07/2025 1:30 PM EDT Office Visit [facility] ADULT D[facility]AL [address] [place] [address] Seferino Junior [address] [place] [address] 06/09/2025 9:30 AM EST Office Visit [facility] MED & PEDS [address] [place] [address] Jaki Chilel CNP [address] [place] [address] documented as of this encounter Visit Diagnoses Not on filedocumented in this encounter Additional Health Concerns Assessment Noted Time PHQ-9 Depression Total Score: 7 03/19/20 24 11:31 AM EDT documented as of this encounter Care Teams Marine Oiler Relationship Specialty Start Date End Date Amy Mclain MD [address] [place] [id number] PCP - General Family Medicine 06/20/12 documented as of this encounter
--- OUTSIDE RECORDS SUMMARY | 2025-05-05 11:10 | XMS_ITS | Encounter Summary ---
Author Organization [employer] Address [address] [place] [address] Care Team Providers Care Banquet Pilot Name Role Phone Amy Mclain MD Primary Care Provider [phone] Reason for Visit * Reason Onset Date Comments Chart Prep 05/01/2025 Encounter Details Date Type Department Care Team ([facility] Contact Info) Description 05/01/2025 Telephone [facility] W[facility] [address] [place] [address] Amy Mclain MD [address] [place] [address] Chart Prep Social History Tobacco Use Types [...] 05/07/2025 1:30 PM EDT Office Visit [facility] ADULT DENTAL [address] [place] [address] Seferino Junior [address] [place] [address] 06/09/2025 9:30 AM EST Office Visit [facility] MED & PEDS [address] [place], [place] [phone] Jaki Chilel CNP [address] [place] [address] documented as of this encounter Visit Diagnoses Not on filedocumented in this encounter Additional Health Concerns Assessment Noted Time PHQ-9 Depression Total Score: 7 03/19/20 24 11:31 AM EDT documented as of this encounter Care Teams Banquet Pilot Relationship Specialty Start Date End Date Amy Mclain MD [address] [place] [address] PCP - General Family Medicine 06/20/12 documented as of this encounter
--- OUTSIDE RECORDS SUMMARY | 2025-05-05 11:10 | XMS_ITS | Encounter Summary ---
Author Organization [employer] Address [address] [facility] [address] [place] [address] Care Team Providers Care Developmental Specialist Name Role Phone Amy Mclain MD Primary Care Provider [phone] Reason for Visit * Reason Onset Date Comments Nurse Triage 02/07/2023 Encounter Details Date Type Department Care Team ([facility] Contact Info) Description 02/07/2023 Telephone [facility] [address] [place] [address] Amy Mclain MD [address] [place] [address] Nurse Triage Social History Tobacco Use Types [...] [facility] ADULT DENTAL [address] [place] [id number] Sandi, Seferino [address] [place] [address] 06/09/2025 9:30 AM EST Office Visit [facility] MED & PEDS [address] [place], [place] [phone] Jaki Chilel CNP [address] [place], [place] [phone] documented as of this encounter Visit Diagnoses Not on filedocumented in this encounter Care Teams Developmental Specialist Relationship Specialty Start Date End Date Amy Mclain MD [address] [place] [address] PCP - General Family Medicine 06/20/12 documented as of this encounter
--- OUTSIDE RECORDS SUMMARY | 2025-05-05 11:10 | XMS_ITS | Encounter Summary ---
Author Organization [employer] Address [address] [facility] 7t [place] [address] Care Team Providers Care Senior Javascript Engineer Name Role Phone Amy Mclain MD Primary Care Provider [phone] Encounter Details Date Type Department Care Team (Latest Contact Info) Description 05/05/2025 Results Follow-Up [facility] MED & PEDS [address] [place] [address] Jaki Chilel, BASIA [address] [place] [address] CBC auto differential, Lipid Panel, Standard, Comprehensive Metabolic Panel, TSH W/Reflex to FT4 Social History Tobacco Use Types Packs/Day Years [...] as of this encounter Miscellaneous Notes * Result Encounter Note - Jaki Chilel CNP - 05/05/2025 9:35 AM EDT Pt labs showing elevated cholesterol, diet and exercise modifications advised at this time. Pt alsohas iron deficiency anemia, I sent an oral iron supplement to her preferred pharmacy to start taking daily. Thanks! documented in this encounter Plan of Treatment Upcoming Encounters Date Type Department Care Team (Late st Contact Info) Description 05/07/2025 1:30 PM EDT Office Visit [facility] ADULT DENTAL [address] [place] [address] Seferino Junior [address] [place] [address] 06/09/2025 9:30 AM EST Office Visit [facility] MED & PEDS [address] [place] [address] Jaki Chilel CNP [address] [place] [address] documented as of this encounter Visit Diagnoses Not on filedocumented in this encounter Additional Health Concerns Assessment Noted Time PHQ-9 Depression Total Score: 7 03/19/20 24 11:31 AM EDT documented as of this encounter Care Teams Senior Javascript Engineer Relationship Specialty Start Date End Date Amy Mclain MD [address] [place] [phone] PCP - General Family Medicine 06/20/12 documented as of this encounter
--- OUTSIDE RECORDS SUMMARY | 2025-05-05 11:10 | XMS_ITS | Clinical Summary ---
Author Organization [employer] Address 75 [facility] 7t [place] [address] Care Team Providers Care Stone Gang Sawyer Name Role Phone Amy Mclain MD Primary Care Provider [phone] Allergies No known active allergies Medications * [...] not open capsule. 30 capsule 11 01/27/20 Active escitalopram (Lexapro) 10 MG tabletIndicatio ns:Anxiety Take 1 tablet (10 mg) by mouth Once per day. 30 tablet 2 05/04/20 25 Active ferrous gluconate (Fergon) 324 (38 Fe) MG tabletIndicatio ns:Iron deficiency anemia secondary to inadequate dietary iron intake Take 1 tablet (324 mg) by mouth with breakfast. 30 tablet 11 05/05/20 Active sertraline (Zoloft) 25 MG tablet Take 1 tablet (25 mg) by mouth Once per day. 30 tablet 11 07/30/19 25 Discontinued Active Problems Problem Noted Date Diagnosed [...] with PCP Anxiety 06/28/2022 Assessment & Plan (05/04/2025 6:02 PM EDT): We will discontinue sertraline and switch to lexapro daily due to sedative effects from sertraline Reviewed side effects of new medication, when to call clinic, when to stop med (such as w/ worsening of depression with mental health meds or occurrence of rash, allergic reaction) Orders: escitalopram (Lexapro) 10 MG tablet; Take 1 tablet (10 mg) by mouth Once per day. Assessment & Plan (02/08/2023 1:38 PM EDT): Assessment: Patient with anxiety lasting up to 3 days at a time (difficult to control nervousness/worry, racing thoughts,) and panic attacks (shaking, increased heart rate, stomach sensations). Symptoms are in the context of biopsychosocial stressors of relationship difficulties and a history trauma. Patient will benefit from continuing OP therapy with [facility], discussing medication management options with PCP, and exploring coping mechanisms of grounding and guided deep breathing. . At this time Ambar Botello meets criteria for Visit Diagnoses: Problem List Items Addressed This Visit Other Anxiety Patient ready to address current needs Yes Delvin Villalta is in OP therapy at [facility] and in the action stage of change PLAN: 1. Follow up with [facility]: Recommended for follow-up: As needed 2. Patient goal is to explore coping mechanisms to decrease anxiety symptoms 3. Behavioral Recommendations a. Guided deep breathing b. Guided grounding c. Continue OP therapy Depressive disorder 06/28/2022 GERD (gastroesophageal reflux disease) 2 Encounters Date Type Department Care Team Description 05/05/2025 Telephone [facility] MED & PEDS [address] [place] [address] Amy Mclain MD 05/05/2025 Results Follow-Up [facility] MED & PEDS [address] [place] [address] Jaki Chilel CNP CBC auto differential, Lipid Panel, Standard, Comprehensive Metabolic Panel, TSH W/Reflex to FT4 05/04/2025 10:00 AM EDT Office Visit [facility] MED & PEDS [address] [place] [address] Jaki Chilel CNP Encounter for physical examination (Primary Dx); Anxiety; Encounter for immunization; Iron deficiency anemia secondary to inadequate dietary iron intake 05/04/2025 Patient Outreach [facility] [address] [place] [address] Amy Mclain MD Care Coordination (CHW outreach for SDOH housing search-referral completed ) 05/04/2025 Travel 05/01/2025 Telephone [facility] [address] [place] [address] Amy Mclain MD Chart Prep 04/13/2025 Telephone [facility] ADULT DENTAL [address] [place] [address] Sandi, Seferino 04/08/2025 Telephone [facility] ADULT DENTAL [address] [place] [address] Sandi, Seferino 03/30/2025 8:00 AM EDT Office Visit [facility] ADULT DENTAL [address] [place] [address] Sandi Seferino 03/16/2025 Orders Only [facility] MED & PED[facility] [address] [place] [address] Amy Mclain MD Hypertension, unspecified type (Primary Dx) 03/15/2025 Telephone [facility] MED & PEDS [address] [place] [address] Amy Mclain MD Lab Orders 02/22/2025 9:00 AM EDT Office Visit [facility] ADULT DENTAL [address] [place] [address] Tim Medrano Dental calculus (Primary Dx) 02/19/2025 Telephone [facility] ADULT DENTAL [address] [place] [address] David Tello, BARRY new patient appt from Last 3 Months [...] 05/07/2025 1:30 PM EDT Office Visit [facility] ADULT DENTAL [address] [place] [address] Sandi, Seferino [address] [place] [address] 06/09/2025 9:30 AM EST Office Visit [facility] MED & PEDS [address] [place] [address] Jaki Chilel, PARKING INSPECTOR [address] [place] [address] Health Maintenance Due Date Last Done Comments Family Planning (PISQ) 1996 HPV Vaccines (1 - 3-dose series) 1996 Dental Oral Exam 01/17/2009 07/19/2008 COVID-19 Vaccine ( season) 2025 Depression Screening 03/19/2025 03/19/2024, 03/19/20 24 Dental Prophylaxis 08/26/2025 02/22/2025 Mammogram 12/16/2025 12/16/2024, 12/2024, 07/13/2024, Additional history exists Dental X-Ray: Bitewings 02/23/2026 02/22/2025 Alcohol/Substance Use Screening 05/04/2026 05/04/2025 Disability Screening 05/04/2026 05/04/2025 SDOH Screening 05/04/2026 05/04/2025 Tobacco Screening 05/04/2026 05/04/2025 Cervical Cancer Screening 10/17/2027 HPV/Cotest 10/17/2027 10/16/2022 Pap Smear 10/17/2027 10/16/2022 Dental X-Ray: Full Mouth 02/24/2028 02/22/2025 Lipid Panel 05/04/2030 05/04/2025, 04/07, 09/26/2022 Zoster Vaccines (1 of [...] 1:46 AM EDT Encounter for physical examination COMPREHENSIVE [...] Recently Relevant to Health Maintenance Results * TSH W/Reflex to FT4 (05/04/2025 11:46 AM EDT) TSH reflex Free T4 2.00 0.32 - 4.0 uIU/mL [facility] Blood Venous blood specimen / Unknown 05/04/2025 11:46 AM EDT 05/04/2025 2:09 PM EDT [facility] Annabella l Result [facility] [address] [place] [phone] * (ABNORMAL) CBC auto differential (05/04/2025 11:46 AM EDT) White Blood Count 5.0 4.8 - 10.8 X10*3/uL [facility] Red Blood Count 4.23 4.20 - 5.50 X10*6/uL [facility] Hemoglobin 10.0(L) 12.0 - 16.0 g/dl [facility] Hematocrit 33.3(L) 37.0 - 47.0 % [facility] Mean Corpuscular Volume 78.7(L) 80.0 - 98.0 fL [facility] Mean Corpuscular Hemoglobin 23.6(L) 27.0 - 33.0 pg [facility] Mean Corpuscular HGB Conc 30.0(L) 31.0 - 35.0 g/dl [facility] Red Cell Distribution Width 17.6(H) 11.0 - 16.0 % [facility] Platelet Count 333 160 - 400 X10*3/uL [facility] Mean Platelet Volume 9.1(L) 9.4 - 12.3 fL [facility] Neutrophils Percent Auto 60.9 45 - 73 % [facility] Imm Gran Pct Auto 0.4 0.0 - 0.4 % [facility] Lymphocytes Percent Auto 28.9 20 - 40 % [facility] Monocytes Percent Auto 5.8 2 - 11 % [facility] Eosinophils Percent Auto 3.0 0 - 4 % [facility] Basophils Percent Auto 1.0 0 - 2 % [facility] NRBC Pct Auto 0.0 0.0 - 0.2 /100WBC [facility] Neutrophils Absolute Auto 3.1 2.0 - 8.3 x10*3/uL [facility] Imm Gran Abs Auto 0.02 0.00 - 0.03 X10*3/uL [facility] Lymphocytes Absolute Auto 1.5 1.2 - 4.9 X10*3/uL [facility] Monocytes Absolute Auto 0.3 0.1 - 1.2 X10*3/uL [facility] Eosinophils Absolute Auto 0.2 0.0 - 0.4 X10*3/uL [facility] Basophils Absolute Auto 0.1 0.0 - 0.2 X10*3/uL [facility] NRBC Abs Auto 0.000 0.0 - 0.012 X10*3/uL [facility] Blood Venous blood specimen / Unknown 05/04/2025 11:46 AM EDT 05/04/2025 2:30 PM EDT [facility] LAB BLOOD ORDERABLES Annabella l Result Performing Organization Address City/[facility]/ZIP Co de Phone Number [facility] [address] [place] [address] [phone] * (ABNORMAL) Lipid Panel, Standard (05/04/2025 11:46 AM EDT) Only the most recent of2 resultswithin the time period is included. Triglycerides 111 <150 mg/dL [facility] Comment:Desirable Triglyceri de: less than 150 mg/dLBorderline High Triglyceride 150-199 mg/dLHigh Triglyceride: 200-499 mg/dLVery High Triglyceride: greater than or equal to 5OO mg/dL Cholesterol 201(H) <200 mg/dL [facility] Comment:Desirable Cholestero l: less than 200 mg/dLBorderline High Cholesterol: 200-239 mg/dLHigh Cholesterol: greater than 239 mg/dL LDL Cholesterol Calculated 130(H) <100 mg/dL [facility] Comment:Desirable LDL: less than 100 mg/dLNear Optimal/Above Optimal LDL: 110- 129 mg/dLBorderline High LDL: 130-159 mg/dLHigh LDL: 160-189 mg/dLVery High LDL: greater than or equal to 190 mg/dL HDL Cholesterol 49 >40 mg/dL [facility] Comment:Desirable HDL: great er than 40 mg/dL Note: This HDL assay may give artificially low results in patients with liver disease. Blood Venous blood specimen / Unknown 05/04/2025 11:46 AM EDT 05/04/2025 2:09 PM EDT [facility] LAB BLOOD ORDERABLES Annabella l Result Performing Organization Address City/[facility]/ZIP Co de Phone Number [facility] [address] [place] [address] [phone] * (ABNORMAL) Comprehensive Metabolic Panel (05/04/2025 11:46 AM EDT) Sodium 141 135 - 145 mmol/L [facility] Potassium 3.8 3.3 - 5.1 mmol/L [facility] Chloride 110(H) 96 - 108 mmol/L [facility] Carbon Dioxide 26 22 - 29 mmol/L [facility] Anion Gap 9(L) 12 - 20 [facility] Urea Nitrogen (BUN) 8(L) 9 - 16 mg/dL [facility] Creatinine, Serum 0.66 0.5 - 1.4 mg/dL [facility] Estimated Glomerular Filt Rate >60 [facility] Comment:Chronic Kidney Disea se: Estimated GFR < 60 mL/min/1.37o4Mkhmol Kidney Disease: Estimated GFR < 15 mL/min/1.73m2 Glucose 75 60 - 115 mg/dL [facility] Calcium 9.0 8.4 - 10.2 mg/dL [facility] Bilirubin, Total 0.5 0.0 - 1.0 mg/dL [facility] Aspartate Amino Transferase 29 5 - 31 U/L [facility] Alanine Aminotransferase 19 0 - 31 U/L [facility] Total Protein 7.0 6.5 - 8.0 g/dL [facility] Albumin Level 4.3 3.5 - 5.0 g/dL [facility] Alkaline Phosphatase 85 39 - 117 U/L [facility] Blood Venous blood specimen / Unknown 05/04/2025 11:46 AM EDT 05/04/2025 2:09 PM EDT Jaki Chilel [facility] LAB BLOOD ORDERABLES Annabella l Result [facility] [address] [place] [phone] [phone] * Hepatic Function Panel (04/16/2025 9:05 AM EDT) Bilirubin, Total 0.5 0.0 - 1.0 mg/dL [facility] Bilirubin, Direct 0.2 0.0 - 0.5 mg/dL [facility] Aspartate Amino Transferase 24 5 - 31 U/L [facility] Alanine Aminotransferase 17 0 - 31 U/L [facility] Total Protein 7.1 6.5 - 8.0 g/dL [facility] Albumin Level 4.4 3.5 - 5.0 g/dL [facility] Alkaline Phosphatase 84 39 - 117 U/L [facility] Blood Venous blood specimen / Unknown 04/16/2025 9:05 AM EDT 04/16/2025 2:12 PM EDT Amy Mclain MD LAB BLOOD ORDERABLES Final Resul t Performing Organization Address [facility] Co de Phone Number [facility] [address] [place] [address] [phone] * (ABNORMAL) Basic Metabolic Panel (04/16/2025 9:05 AM EDT) Sodium 139 135 - 145 mmol/L [facility] Potassium 4.1 3.3 - 5.1 mmol/L [facility] Chloride 109(H) 96 - 108 mmol/L [facility] Carbon Dioxide 23 22 - 29 mmol/L [facility] Anion Gap 11(L) 12 - 20 [facility] Urea Nitrogen (BUN) 7(L) 9 - 16 mg/dL [facility] Creatinine, Serum 0.65 0.5 - 1.4 mg/dL [facility] Estimated Glomerular Filt Rate >60 [facility] Comment:Chronic Kidney Disea se: Estimated GFR < 60 mL/min/1.72t2Jmfhzs Kidney Disease: Estimated GFR < 15 mL/min/1.73m2 Glucose 92 60 - 115 mg/dL [facility] Calcium 9.0 8.4 - 10.2 mg/dL [facility] Blood Venous blood specimen / Unknown 04/16/2025 9:05 AM EDT 04/16/2025 2:12 PM EDT us Amy Mclain MD LAB BLOOD ORDERABLES Final Resul t Performing Organization Address [facility]/ZIP Co de Phone Number [facility] [address] [place] [address] [phone] * BI Mammogram Diagnostic Tomosynthesis Bilateral (12/16/2024 12:58 PM EDT) Anatomical Region Laterality Modality Breast Bilateral Mammography 12/16/2024 12:5 8 PM EDT Narrative 12/16/2024 1:18 PM EDT [facility] [address] [place] [address] Mammography Report Signed Patient: Ambar Botello MR#: [id number] : 1980 Acct:[id number] Age/Sex: 44 / F ADM Date: 12/16/24 Loc: HO.MAMMO Attending Dr: Amy Mclain MD Ordering Physician: Amy Mclain MD Results: 2Benign Findings Date of Service: 12/16/24 Follow Up: 1 Year From [facility] Mammogram Procedure(s): MM tomosynthesis diagnostic BI Accession Number(s): [id number] cc: Amy Mclain MD EXAMINATION: MM DIAGNOSTIC [...] 12/16/24 1316 DD/ 1258 TD/TT: 12/16/24 1313 Director Of Occupational Health: Procedure Note Donotuseinterpreter, Image - [facility] [address] [place] [address] Mammography Report Signed Patient: Fernando Botello#: [id number] : 1980Acct:[id number] Age/Sex: 44 / FADM Date: 12/16/24 Loc: HO.MAMMO Attending Dr: Amy Mclain MD Ordering Physician: Amy Mclain MDResults: 2Benign Findings Date of Service: 12/16/24Follow Up: 1 Year From [facility] Mammogram Procedure(s): MM tomosynthesis diagnostic BI Accession Number(s): [id number] cc: Amy Mclain MD EXAMINATION: MM DIAGNOSTIC [...] DO 12/16/2024 01:16 PM EDT RP Workstation: [employer] Dictated By: Maisha Canales DO Signed By: <Electronically signed by Maisha Canales DO in OV> 12/16/24 1316 DD/ 1258 TD/TT: 12/16/24 1313 Director Of Occupational Health: Amy Mclain MD IMG BI PROCEDURES Final Result * Hepatitis C Antibody with Reflex to HCV, RNA, Quantitative, Real-Time PCR (04/08/2024 9:34 AM EDT) Hepatitis C Antibody Nonreactive Nonreactive [facility] Comment:Antibodies to HCV no t detected; does not exclude early acuteHCV infection. Blood Venous blood specimen / Unknown 04/08/2024 9:34 AM EDT 04/08/2024 2:37 PM EDT Amy Mclain MD LAB BLOOD ORDERABLES Final Resul t [facility] [address] [place] [phone] * HIV-1/2 Antigen and Antibodies, Fourth Generation, with Reflexes (04/08/2024 9:34 AM EDT) HIV AB/AG Nonreactive Nonreactive [facility] Comment:HIV-1 p24 Ag and/or HIV-1/HIV-2 Ab not detected.A test result that is nonreactive does not exclude thepossibility of exposure to or infection with HIV-1 and/orHIV-2. Nonreactive results in this assay for individualswith prior exposure to HIV-1 and/or HIV-2 may be due toantigen and antibody levels that are below the limit ofdetection of this assay.The [employer] HIV Ag/Ab Combo assay result andsupplemental assay results should be interpreted inconjunction with the patient's clinical presentation,history and other laboratory results. If the results areinconsistent with clinical evidence, additional testing issuggested to confirm the result. Blood Venous blood specimen / Unknown 04/08/2024 9:34 AM EDT 04/08/2024 2:37 PM EDT us Amy Mclain MD LAB BLOOD ORDERABLES Final Resul t [facility] [address] [place] [phone] * Image-Guided Pap with Age-Based Screening Protocols (10/16/2022 9:29 AM EDT) Comment [facility] Comment: This order for age-based cervical cancer and STI screening follows ACOG guidelines(PB 168, 140, RYM086). See individual assays for performing site location. Clinical Information: None given [facility] LMP: NONE GIVEN [email or web address] Prev. PAP: NONE GIVEN [facility] Prev. BX: NONE GIVEN [email or web address] Diagn[facility] SOURCE: None given [facility] Statement Of Adequacy: [facility] Comment: Satisfactory for evaluation. Endocervical/transformation zone component present. Interpretation/ Result: Negative for intraepithelial lesion or malignancy. [facility] COMMENT: This Pap test has been evaluated with computer assisted technology. [facility] Cytotechnologis t: [facility] Comment: MPG, CT(ASCP) CT screening location: [address] [address] (Always Message) [employer] Comment: EXPLANATORY NOTE: The Pap is a [...] HPV nRNA E6/E7 Not Detected Not Detected [employer] [facility] Comment: Methodology: Inspector [employer]gings-Mediated Amplification This assay detects E6/E7 viral messenger RNA (mRNA) from 14 high-risk HPV types (16,18,31,33,35,39,45,51,52,56,58,59,66,68). Cervical sources are required for HPV testing. If a vaginal source from a patient who has had a total hysterectomy with removal of cervix was submitted, please contact the testing laboratory for alternative testing options. For additional information, please refer to http://education.[employer]/faq/LLO325t0 (This link if provided for information/ educational purposes only.) Cytology specimen container (physical object) 10/16/2022 9:29 AM EDT 10/17/2022 12:59 AM EDT [facility] LAB BLOOD ORDERABLES Annabella ohara Result [facility] [address], [place] [address] [employer] [place] [employer] [address] [place] [address] from Last 3 Months or Most Recently Relevant to Health Maintenance Insurance [facility] [place] Care Teams Stone Gang Sawyer Relationship Specialty Start Date End Date Amy Mclain MD [address] [place] [phone] PCP - General Family Medicine 06/20/12
--- OUTSIDE RECORDS SUMMARY | 2025-05-05 11:10 | XMS_ITS | Encounter Summary ---
Author Organization [employer] Address [address] [facility] 7t [place] [address] Care Team Providers Care Info Specialist Name Role Phone Amy Mclain MD Primary Care Provider [phone] Reason for Visit * Reason Comments Care Coordination CHW outreach for SDO H housing search-referral completed Encounter Details Date Type Department Care Team (Latest Contact Info) Description 05/04/2025 Patient Outreach [facility] [address] [place] [address] Amy Mclain MD [address] [place] [address] Care Coordination (CHW outreach for SDOH housing [...] Wednesdays, and Walk-In Urgent Care Located in [facility]. Patient provided with after-hours line for [facility], , which offer night time triage service and option to transfer to marketing database consultant provider if needed. documented in this encounter Plan of Treatment Upcoming Encounters Date Type Department Care Team ([facility] st Contact Info) Description 05/07/2025 1:30 PM EDT Office Visit [facility] ADULT DENTAL [address] [place] [address] Seferino Junior [address] [place] [address] 06/09/2025 9:30 AM EST Office Visit [facility] MED & PEDS [address] [place], [place] [phone] Jaki Chilel, BASIA [address] [place], [place] [phone] documented as of this encounter Visit Diagnoses Not on filedocumented in this encounter Additional Health Concerns Assessment Noted Time PHQ-9 Depression Total Score: 7 03/19/20 24 11:31 AM EDT documented as of this encounter Care Teams Info Specialist Relationship Specialty Start Date End Date Amy Mclain MD [address] [place] [address] PCP - General Family Medicine 06/20/12 documented as of this encounter
--- OUTSIDE RECORDS SUMMARY | 2025-05-05 11:11 | XMS_ITS | Encounter Summary ---
Author Organization [employer] Address [address] [facility] 7t [place] [address] Care Team Providers Care Runway Model Name Role Phone Amy Mclain MD Primary Care Provider [phone] Reason for Visit * Reason Onset Date Comments new patient appt 02/19/2025 Encounter Details Date Type Department Care Team ([facility] Contact Info) Description 02/19/2025 Telephone C [facility] ADULT [facility]AL [address] [place] [address] David Tello, DMD [address] [place] [address] new patient appt Social History Tobacco Use [...] 05/07/2025 1:30 PM EDT Office Visit [facility] AD[facility] [address] [place] [address] Seferino Junior [address] [place] [address] 06/09/2025 9:30 AM EST Office Visit [facility] MED & PEDS [address] [place] [address] Jaki Chilel CNP [address] [place] [address] documented as of this encounter Visit Diagnoses Not on filedocumented in this encounter Additional Health Concerns Assessment Noted Time PHQ-9 Depression Total Score: 7 03/19/20 24 11:31 AM EDT documented as of this encounter Care Teams Runway Model Relationship Specialty Start Date End Date Amy Mclain MD [address] [place] [address] PCP - General Family Medicine 06/20/12 documented as of this encounter
== END 2025-05-05 10:26 | disposition home or self-care (01) ==
LOC: HO.HGI 09:28
PROVIDERS: PCP Student in an Organized Health Care Education/Training Program; Visit Provider Nurse Practitioner Family
DX: Z01.818 Encounter for other preprocedural examination (principal); Z12.11 Encounter for screening for malignant neoplasm of colon; R10.13 Epigastric pain; D64.9 Anemia, unspecified
CPT/HCPCS: 99205

== ENCOUNTER → 2025-05-05 09:27 | Outpatient (BNVA) | payer MEDICAID, SELFPAY | PROVIDERS: PCP Student in an Organized Health Care Education/Training Program; Visit Provider Nurse Practitioner Family | DX: Z12.11 Encounter for screening for malignant neoplasm of colon (principal); R10.13 Epigastric pain; D64.9 Anemia, unspecified | CPT/HCPCS: 99212 ==

== ENCOUNTER 2025-05-21 08:51 | Outpatient (AMB) | payer MEDICAID, SELFPAY ==
--- OUTSIDE RECORDS SUMMARY | 2025-05-21 09:16 | XMS_ITS | Encounter Summary ---
Author Organization [employer] Address [address] [facility] 7t [place] [address] Care Team Providers Care Smelter Operator Name Role Phone Jaki Chilel CNP Primary Care Provider [phone] Encounter Details Date Type Department Care Team (Latest Contact Info) Description 05/05/2025 Results Follow-Up [facility] PEDS [address] [place] [address] Jaki Chilel CNP [address] [place] [address] CBC auto differential, Lipid Panel, Standard, Comprehensive [...] Care Team (Late st Contact Info) Description 06/09/2025 9:30 AM EST Office Visit [facility] [address] [place] [address] Jaki Chilel CNP [address] [place] [address] 06/10/2025 1:30 PM EST Office Visit [facility] [address] [place] [address] Seferino Junior [address] [place] [address] documented as of this encounter Visit Diagnoses Not on filedocumented in this encounter Additional Health Concerns Assessment Noted Time PHQ-9 Depression Total Score: 7 09/12/20 24 11:31 AM EDT documented as of this encounter Care Teams Smelter Operator Relationship Specialty Start Date End Date Jaki Chilel CNP [address] [place], [place] [address] [address] PCP - General Family Medicine 05/05/25 documented as of this encounter
--- OUTSIDE RECORDS SUMMARY | 2025-05-21 09:16 | XMS_ITS | Clinical Summary ---
Author Organization [employer] Address [address] [facility] 7t [place] [address] Care Team Providers Care Hepatology Physician Name Role Phone Getachew Wyattsarwatmushtaq BASIA Primary Care Provider [phone] Allergies No known active allergies Medications * [...] Once per day. 30 tablet 2 05/04/20 Active ferrous gluconate (Fergon) 324 (38 Fe) MG tabletIndicatio ns:Iron deficiency anemia secondary to inadequate dietary iron intake Take 1 tablet (324 mg) by mouth with breakfast. 30 tablet 11 05/05/20 Active sertraline (Zoloft) 25 MG tablet Take 1 tablet (25 mg) by mouth Once per day. 30 tablet 11 07/30/19 Discontinued Active Problems Problem Noted Date Diagnosed [...] will benefit from continuing OP therapy with [facility], discussing medication management options with PCP, and exploring coping mechanisms of grounding and guided deep breathing. . At this time Ambar Botello meets criteria for Visit Diagnoses: Problem List Items Addressed This Visit Other Anxiety Patient ready to address current needs Yes Delvin Villalta is in OP therapy at [facility] and in the action stage of change PLAN: 1. Follow up with [facility]: Recommended for follow-up: As needed 2. Patient goal is to explore coping mechanisms to decrease anxiety symptoms 3. Behavioral Recommendations a. Guided deep breathing b. Guided grounding c. Continue OP therapy Depressive disorder 06/28/2022 GERD (gastroesophageal reflux disease) 2 Encounters Date Type Department Care Team Description 05/07/2025 1:30 PM EDT Office Visit [facility] ADULT D[facility]AL [address] [place] [address] Seferino Junior 05/05/2025 Telephone [facility] MED [facility] PEDS [address] [place] [address] Amy Mclain MD 05/05/2025 Results Follow-Up [facility] [address] [place] [address] Jaki Chilel CNP CBC auto differential, Lipid Panel, Standard, Comprehensive Metabolic Panel, TSH W/Reflex to FT4 05/04/2025 10:00 AM EDT Office Visit [facility] MED & PED[facility] [address] [place] [address] Jaki Chilel CNP Encounter for physical examination (Primary Dx); Anxiety; Encounter for immunization; Iron deficiency anemia secondary to inadequate dietary iron intake 05/04/2025 Patient Outreach [facility] [address] [place] [address] Amy Mclain MD Care Coordination (CHW outreach for SDOH housing search-referral completed ) 05/04/2025 Travel 05/01/2025 Telephone [facility] [address] [place] [address] Amy Mclain MD Chart Prep 04/13/2025 Telephone [facility] [address] [place] [address] Seferino Junior 04/08/2025 Telephone [facility] [address] [place] [address] Lisa Juniorricio 03/30/2025 8:00 AM EDT Office Visit [facility] [address] [place] [address] Lisa Juniorricio 03/16/2025 Orders Only [facility] [address] [place] [address] Amy Mclain MD Hypertension, unspecified type (Primary Dx) 03/15/2025 Telephone [facility] [address] [place] [address] Amy Mclain MD Lab Orders 02/22/2025 9:00 AM EDT Office Visit [facility] AD[facility] [address] [place] [address] Tim Medrano Dental calculus (Primary Dx) 02/19/2025 Telephone [facility] [address] [place] [address] David Tello, BARRY new patient appt from Last 3 Months Immunizations Immunization Administration Dates Next Due DTP 1980,1981,1981 DTaP 09/05/1985,03/08/1984 Hep B, adult 05/03/1997,08/08/1995,12/06/1994 Influenza injectable quadriv alent preservative free 04/20/2015 Influenza, IIV3, injectable 07/29/2014 Influenza, Split (incl. terranec fied surface antigen) 03/13/2013 Influenza, seasonal, injecta [...] Description 06/09/2025 9:30 AM EST Office Visit [facility] [address] [place] [address] Jaki Chilel, BASIA [address] [place] [address] 06/10/2025 1:30 PM EST Office Visit [facility] [address] [place] [address] Seferino Junior [address] [place] [address] Health Maintenance Due Date Last Done Comments Family Planning (PISQ) 1996 HPV Vaccines (1 - 3-dose series) 1996 COVID-19 Vaccine ( season) 2025 Depression Screening 03/19/2025 03/19/2024, 03/19/20 24 Dental Oral Exam 08/26/2025 02/22/2025, 07/19/2008 Dental Prophylaxis 08/26/2025 02/22/2025 Mammogram 12/16/2025 12/16/2024, 12/2024, 07/13/2024, Additional history exists Dental X-Ray: Bitewings 02/23/2026 02/22/2025 Alcohol/Substance Use Screening 05/04/2026 05/04/2025 Disability Screening 05/04/2026 05/04/2025 SDOH Screening 05/04/2026 05/04/2025 Tobacco Screening 05/07/2026 05/07/2025 Cervical Cancer Screening 10/17/2027 HPV/Cotest 10/17/2027 10/16/2022 [...] Procedure Name Priority Date/Time Associated Diagnosis Comments NO CHARGE PROCEDURE Routine 05/07/2025 1 :30 PM EDT TSH W/REFLEX TO FT4 Routine 05/04/2025 1 [...] SURF, POSTERIOR Routine 03/30/2025 8:00 AM EDT PERIODIC ORAL EVALUATION - ESTABLISHED PATIENT Routine 02/22/2025 9:00 AM EDT CASE PRESENTATION, DETAILED AND EXTENSIVE [...] 10/16/2022 9:29 AM EDT Cervical cancer screening from Last 3 Months or Most Recently Relevant to Health Maintenance Results * TSH W/Reflex to FT4 (05/04/2025 11:46 AM EDT) TSH reflex Free T4 2.00 0.32 - 4.0 uIU/mL [facility] Blood Venous blood specimen / Unknown 05/04/2025 11:46 AM EDT 05/04/2025 2:09 PM EDT [facility] LAB BLOOD ORDERABLES Annabella l Result [facility] [address] [place] [phone] * (ABNORMAL) CBC auto differential (05/04/2025 11:46 AM EDT) White Blood Count 5.0 4.8 - 10.8 X10*3/uL [facility] Red Blood Count 4.23 4.20 - 5.50 X10*6/uL [facility] Hemoglobin 10.0(L) 12.0 - 16.0 g/dl [facility] Hematocrit 33.3(L) 37.0 - 47.0 % [facility] Mean Corpuscular Volume 78.7(L) 80.0 - 98.0 fL [facility] Mean Corpuscular Hemoglobin 23.6(L) 27.0 - 33.0 pg [facility] Mean Corpuscular HGB Conc 30.0(L) 31.0 - 35.0 g/dl [facility] Red Cell Distribution Width 17.6(H) 11.0 - 16.0 % [facility] Platelet Count 333 160 - 400 X10*3/uL [facility] Mean Platelet Volume 9.1(L) 9.4 - 12.3 fL [facility] Neutrophils Percent Auto 60.9 45 - 73 % [facility] Imm Gran Pct Auto 0.4 0.0 - 0.4 % [facility] Lymphocytes Percent Auto 28.9 20 - 40 % [facility] Monocytes Percent Auto 5.8 2 - 11 % [facility] Eosinophils Percent Auto 3.0 0 - 4 % [facility] Basophils Percent Auto 1.0 0 - 2 % [facility] NRBC Pct Auto 0.0 0.0 - 0.2 /100WBC [facility] Neutrophils Absolute Auto 3.1 2.0 - 8.3 x10*3/uL [facility] Imm Gran Abs Auto 0.02 0.00 - 0.03 X10*3/uL [facility] Lymphocytes Absolute Auto 1.5 1.2 - 4.9 X10*3/uL [facility] Monocytes Absolute Auto 0.3 0.1 - 1.2 X10*3/uL [facility] Eosinophils Absolute Auto 0.2 0.0 - 0.4 X10*3/uL [facility] Basophils Absolute Auto 0.1 0.0 - 0.2 X10*3/uL [facility] NRBC Abs Auto 0.000 0.0 - 0.012 X10*3/uL [facility] Blood Venous blood specimen / Unknown 05/04/2025 11:46 AM EDT 05/04/2025 2:30 PM EDT [facility] LAB BLOOD ORDERABLES Annabella l Result Performing Organization Address City/[facility]/ZIP Co de Phone Number [facility] [address] [place] [address] [phone] * (ABNORMAL) Lipid Panel, Standard (05/04/2025 11:46 AM EDT) Only the most recent of2 resultswithin the time period is included. Triglycerides 111 <150 mg/dL [facility] Comment:Desirable Triglyceri de: less than 150 mg/dLBorderline High Triglyceride 150-199 mg/dLHigh Triglyceride: 200-499 mg/dLVery High Triglyceride: greater than or equal to 5OO mg/dL Cholesterol 201(H) <200 mg/dL [facility] Comment:Desirable Cholestero l: less than 200 mg/dLBorderline High Cholesterol: 200-239 mg/dLHigh Cholesterol: greater than 239 mg/dL LDL Cholesterol Calculated 130(H) <100 mg/dL [facility] Comment:Desirable LDL: less than 100 mg/dLNear Optimal/Above Optimal LDL: 110- 129 mg/dLBorderline High LDL: 130-159 mg/dLHigh LDL: 160-189 mg/dLVery High LDL: greater than or equal to 190 mg/dL HDL Cholesterol 49 >40 mg/dL [facility] Comment:Desirable HDL: great er than 40 mg/dL Note: This HDL assay may give artificially low results in patients with liver disease. Blood Venous blood specimen / Unknown 05/04/2025 11:46 AM EDT 05/04/2025 2:09 PM EDT [facility] LAB BLOOD ORDERABLES Annabella l Result Performing Organization Address City/[facility]/ZIP Co de Phone Number [facility] [address] [place] [address] [phone] * (ABNORMAL) Comprehensive Metabolic Panel (05/04/2025 11:46 AM EDT) Sodium 141 135 - 145 mmol/L [facility] Potassium 3.8 3.3 - 5.1 mmol/L [facility] Chloride 110(H) 96 - 108 mmol/L [facility] Carbon Dioxide 26 22 - 29 mmol/L [facility] Anion Gap 9(L) 12 - 20 [facility] Urea Nitrogen (BUN) 8(L) 9 - 16 mg/dL [facility] Creatinine, Serum 0.66 0.5 - 1.4 mg/dL [facility] Estimated Glomerular Filt Rate >60 [facility] Comment:Chronic Kidney Disea se: Estimated GFR < 60 mL/min/[id number] Kidney Disease: Estimated GFR < 15 mL/min/1.73m2 Glucose 75 60 - 115 mg/dL [facility] Calcium 9.0 8.4 - 10.2 mg/dL [facility] Bilirubin, Total 0.5 0.0 - 1.0 mg/dL [facility] Aspartate Amino Transferase 29 5 - 31 U/L [facility] Alanine Aminotransferase 19 0 - 31 U/L [facility] Total Protein 7.0 6.5 - 8.0 g/dL [facility] Albumin Level 4.3 3.5 - 5.0 g/dL [facility] Alkaline Phosphatase 85 39 - 117 U/L [facility] Blood Venous blood specimen / Unknown 05/04/2025 11:46 AM EDT 05/04/2025 2:09 PM EDT Wyattmushtaq Chilel [facility] LAB BLOOD ORDERABLES Annabella l Result [facility] [address] [place] [phone] * Hepatic Function Panel (04/16/2025 9:05 AM EDT) Bilirubin, Total 0.5 0.0 - 1.0 mg/dL [facility] Bilirubin, Direct 0.2 0.0 - 0.5 mg/dL [facility] Aspartate Amino Transferase 24 5 - 31 U/L [facility] Alanine Aminotransferase 17 0 - 31 U/L [facility] Total Protein 7.1 6.5 - 8.0 g/dL [facility] Albumin Level 4.4 3.5 - 5.0 g/dL [facility] Alkaline Phosphatase 84 39 - 117 U/L [facility] Blood Venous blood specimen / Unknown 04/16/2025 9:05 AM EDT 04/16/2025 2:12 PM EDT us Amy Mclain MD LAB BLOOD ORDERABLES Final Resul t [facility] [address] [place] [address] [phone] * (ABNORMAL) Basic Metabolic Panel (04/16/2025 9:05 AM EDT) Sodium 139 135 - 145 mmol/L [facility] Potassium 4.1 3.3 - 5.1 mmol/L [facility] Chloride 109(H) 96 - 108 mmol/L [facility] Carbon Dioxide 23 22 - 29 mmol/L [facility] Anion Gap 11(L) 12 - 20 [facility] Urea Nitrogen (BUN) 7(L) 9 - 16 mg/dL [facility] Creatinine, Serum 0.65 0.5 - 1.4 mg/dL [facility] Estimated Glomerular Filt Rate >60 [facility] Comment:Chronic Kidney Disea se: Estimated GFR < 60 mL/min/[id number] Kidney Disease: Estimated GFR < 15 mL/min/1.73m2 Glucose 92 60 - 115 mg/dL [facility] Calcium 9.0 8.4 - 10.2 mg/dL [facility] Blood Venous blood specimen / Unknown 04/16/2025 9:05 AM EDT 04/16/2025 2:12 PM EDT us Amy Mclain MD LAB BLOOD ORDERABLES Final Resul t [facility] [address] [place] [address] [phone] * BI Mammogram Diagnostic Tomosynthesis Bilateral (12/16/2024 12:58 PM EDT) Anatomical Region Laterality Modality Breast Bilateral Mammography 12/16/2024 12:5 8 PM EDT Narrative 12/16/2024 1:18 PM EDT [address] [place] [address] Mammography Report Signed Patient: Ambar Botello MR#: [id number] : 1980 Acct:[id number] Age/Sex: 44 / F ADM Date: 12/16/24 Loc: HO.MAMMO Attending Dr: Amy Mclain MD Ordering Physician: Amy Mclain MD Results: 2Benign Findings Date of Service: 12/16/24 Follow Up: 1 Year From [facility] Mammogram Procedure(s): MM tomosynthesis diagnostic BI Accession Number(s): [id number] cc: Amy Mclain MD EXAMINATION: MM DIAGNOSTIC [...] 12/16/24 1316 DD/ 1258 TD/TT: 12/16/24 1313 Life Advisor: Procedure Note Donotuseinterpreter, Image - 12/16/2024 [facility] [address] [place] [address] Mammography Report Signed Patient: Fernando Botello#: [id number] : 1980Acct:[id number] Age/Sex: 44 / FADM Date: 12/16/24 Loc: HO.MAMMO Attending Dr: Amy Mclain MD Ordering Physician: Amy Mclain MDResults: 2Benign Findings Date of Service: 12/16/24Follow Up: 1 Year From [facility] Mammogram Procedure(s): MM tomosynthesis diagnostic BI Accession Number(s): [id number] cc: Amy Mclain MD EXAMINATION: MM DIAGNOSTIC [...] 12/16/24 1316 DD/ 1258 TD/TT: 12/16/24 1313 Life Advisor: us Amy Mclain MD IMG BI PROCEDURES Final Result * Hepatitis C Antibody with Reflex to HCV, RNA, Quantitative, Real-Time PCR (04/08/2024 9:34 AM EDT) Hepatitis C Antibody Nonreactive Nonreactive [facility] Comment:Antibodies to HCV no t detected; does not exclude early acuteHCV infection. Blood Venous blood specimen / Unknown 04/08/2024 9:34 AM EDT 04/08/2024 2:37 PM EDT us Amy Mclain MD LAB BLOOD ORDERABLES Final Resul t [facility] [address] [place] [address] [phone] * HIV-1/2 Antigen and Antibodies, Fourth Generation, with Reflexes (04/08/2024 9:34 AM EDT) HIV AB/AG Nonreactive Nonreactive [facility] Comment:HIV-1 p24 Ag and/or HIV-1/HIV-2 Ab not detected.A test result that is nonreactive does not exclude thepossibility of exposure to or infection with HIV-1 and/orHIV-2. Nonreactive results in this assay for individualswith prior exposure to HIV-1 and/or HIV-2 may be due toantigen and antibody levels that are below the limit ofdetection of this assay.The [employer] HIV Ag/Ab Combo assay result andsupplemental assay results should be interpreted inconjunction with the patient's clinical presentation,history and other laboratory results. If the results areinconsistent with clinical evidence, additional testing issuggested to confirm the result. Blood Venous blood specimen / Unknown 04/08/2024 9:34 AM EDT 04/08/2024 2:37 PM EDT us Amy Mclain MD LAB BLOOD ORDERABLES Final Resul t [facility] [address] [place] [phone] * Image-Guided Pap with Age-Based Screening Protocols (10/16/2022 9:29 AM EDT) Comment [facility] Comment: This order for age-based cervical cancer and STI screening follows ACOG guidelines(PB 168, 140, XWB204). See individual assays for performing site location. Clinical Information: None given [facility] LMP: NONE GIVEN [facility] Prev. PAP: NONE GIVEN [facility] Prev. BX: NONE GIVEN [facility] SOURCE: None given [facility] Statement Of Adequacy: [facility] Comment: Satisfactory for evaluation. Endocervical/transformation zone component present. Interpretation/ Result: Negative for intraepithelial lesion or malignancy. [facility] COMMENT: This Pap test has been evaluated with computer assisted technology. [employer] Cytotechnologis t: [employer] Comment: MPG, CT(ASCP) CT screening location: [address] [phone] (Always Message) [employer] Comment: EXPLANATORY NOTE: The Pap is a [...] HPV nRNA E6/E7 Not Detected Not Detected [employer] Comment: Methodology: Supervisor Roving Department-Mediated Amplification This assay detects E6/E7 viral messenger RNA (mRNA) from 14 high-risk HPV types (16,18,31,33,35,39,45,51,52,56,58,59,66,68). Cervical sources are required for HPV testing. If a vaginal source from a patient who has had a total hysterectomy with removal of cervix was submitted, please contact the testing laboratory for alternative testing options. For additional information, please refer to http://education.Tacatì/faq/AJR141t9 (This link if provided for information/ educational purposes only.) Cytology specimen container (physical object) 10/16/2022 9:29 AM EDT 10/17/2022 12:59 AM EDT [facility] LAB BLOOD ORDERABLES Annabella l Result [address], [place] [address] [employer] [address] [place] [phone] from Last 3 Months or Most Recently Relevant to Health Maintenance Insurance Care Teams Hepatology Physician Relationship Specialty Start Date End Date Jaki Chilel CNP [address] [place] [phone] PCP - General Family Medicine 05/05/25
--- OUTSIDE RECORDS SUMMARY | 2025-05-21 09:16 | XMS_ITS | Encounter Summary ---
Author Organization [employer] Address [address] [facility] 7t [place] [address] Care Team Providers Care Relief Mate Name Role Phone Amy Mclain MD Primary Care Provider [phone] Jaki Chilel CNP Primary Care Provider [phone] Reason for Visit * Reason Onset Date Comments Nurse Triage 02/07/2023 Encounter Details Date Type Department Care Team ([facility] Contact Info) Description 02/07/2023 Telephone [facility] [address] [place] [address] Amy Mclain MD [address] [place] [address] Nurse Triage Social History Tobacco Use Types [...] Description 06/09/2025 9:30 AM EST Office Visit [facility] [address] [place] [address] Jaki Chilel CNP [address] [place] [address] 06/10/2025 1:30 PM EST Office Visit [facility] ADULT D[facility] [address] [place], [place] [phone] Seferino Junior [address] [place] [address] documented as of this encounter Visit Diagnoses Not on filedocumented in this encounter Care Teams Relief Mate Relationship Specialty Start Date End Date Amy Mclain MD [address] [place] [phone] PCP - General Family Medicine 06/20/12 05/04/25 Jaki Chilel CNP [address] [place] [address] PCP - General Family Medicine 05/05/25 documented as of this encounter
--- OUTSIDE RECORDS SUMMARY | 2025-05-21 09:16 | XMS_ITS | Encounter Summary ---
Author Organization [employer] Address [address] [facility] 7t [place] [address] Care Team Providers Care Shaker Tender Name Role Phone Amy Mclain MD Primary Care Provider [phone] Jaki Chilel CNP Primary Care Provider [phone] Reason for Visit * Reason Onset Date Comments new patient appt 02/19/2025 Encounter Details Date Type Department Care Team ([facility] st Contact Info) Description 02/19/2025 Telephone [facility] [address] [place] [address] David Tello, DMD [address] [place] [address] new patient appt Social History Tobacco Use [...] 06/09/2025 9:30 AM EST Office Visit [facility] PED[facility] [address] [place] [address] Jaki Chilel, BASIA [address] [place] [address] 06/10/2025 1:30 PM EST Office Visit [facility] ADULT DENTAL [address] [place] [address] Seferino Junior [address] [place] [address] documented as of this encounter Visit Diagnoses Not on filedocumented in this encounter Additional Health Concerns Assessment Noted Time PHQ-9 Depression Total Score: 7 03/19/20 24 11:31 AM EDT documented as of this encounter Care Teams Shaker Tender Relationship Specialty Start Date End Date Amy Mclain MD [address] [place] [phone] PCP - General Family Medicine 06/20/12 05/04/25 Jaki Chilel CNP [address] [place] [address] PCP - General Family Medicine 05/05/25 documented as of this encounter
--- NOTE | 2025-05-21 09:25 | AM.OFFVISNUR ---
Intake Visit Reasons: H Pylori Allergies No Known Allergies Allergy (Verified 05/21/25 09:25) Nursing Note Patient presents for collection of?H Pylori?breath test. Patient has been fasting for 1 hour (nothing to eat, drink, no chewing gum or smoking) has not taken any antacid medication for at least 2 weeks and has no allergies to artificial sweeteners.?? Assessment & Plan Assessment & Plan (1) Epigastric pain: Code(s): R10.13 - Epigastric pain Category: Medical Plan Patient presents for collection of?H Pylori?breath test. Patient has been fasting for 1 hour (nothing to eat, drink, no chewing gum or smoking) has not taken any antacid medication for at least 2 weeks and has no allergies to artificial sweeteners.???This test checks for an overgrowth of bacteria in your stomach. We all have bacteria but some may have more than others. It is treatable. if the test comes back negative there is nothing else to do. If the test result is positive we will treat you with 2 antibiotics and a medication to decrease the acid in your stomach (PPI) for 2 weeks. Two weeks after you have completed the treatment we will retest you to make sure the overgrowth has resolved. Patient Instructions: Process for specimen collection and reason for testing was explained to the patient. Specimen collection. Patient instructed to take a deep breath and then exhale into the blue bag, filling it up as much as possible. Patient instructed to drink a mixture of water and the artificial sweetener with a straw. A 15 minute wait period was observed. Patient instructed to take a deep breath and then exhale into the pink bag, filling it up as much as possible.?? Coding Level of Care Code Established Pt Est Pt Level 1 (21035) Patient Type Established Diagnoses Epigastric pain R10.13
== END 2025-05-21 10:37 | disposition home or self-care (01) ==
LOC: HO.HGI 08:52
PROVIDERS: PCP Student in an Organized Health Care Education/Training Program; Visit Provider Nurse Practitioner Family
DX: R10.13 Epigastric pain (principal)

== ENCOUNTER → 2025-05-21 08:51 | Outpatient (BNVA) | payer MEDICAID, SELFPAY | PROVIDERS: PCP Student in an Organized Health Care Education/Training Program; Visit Provider Nurse Practitioner Family | DX: R10.13 Epigastric pain (principal); R11.0 Nausea | CPT/HCPCS: 83013; 99211 ==

== ENCOUNTER 2025-05-24 15:51 | Outpatient (REF) | payer MEDICAID, SELFPAY | END 2025-05-24 15:52 | disposition home or self-care (01) | LOC: HO.LNP 15:51 | PROVIDERS: Visit Provider Nurse Practitioner Family | DX: Z11.0 Encounter for screening for intestinal infectious diseases (principal) | CPT/HCPCS: 83013 ==